=== PATIENT | male | born 1960 | race Caucasian/White ===

== ENCOUNTER 2017-01-20 01:37 | Inpatient (IN) ==
--- NOTE | 2017-01-20 02:21 | Emergency Department Note ---
Fall HPI - General Chief Complaint: Fall Stated Complaint: Fall Time Seen by Provider: 01/20/17 02:14 Source: patient Mode of arrival: EMS - History of Present Illness HPI Narrative: Patient brought by ambulance, Deejay fallen on the left hip. He did have a few beers to drink, scaring of the trash slipped and fell and landed on the left hip. He denies any nausea vomiting denies any chest pain he's had no other injuries. History of hepatitis C. He drinks about 40 ounces of beer daily. - Related Data Home Medications Medication Instructions Recorded Confirmed No Known Home Meds [No Known Home 01/20/17 01/20/17 Meds] Allergies Allergy/AdvReac Type Severity Reaction Status Date / Time Penicillins Allergy Unknown Anaphylaxis Unverified 04/19/15 15:00 Review of Systems All systems ED: reviewed and negative except as stated. Constitutional: Denies: fever Eyes: Denies: eye pain ENT ED: Denies: ear pain, throat pain Cardiovascular: Denies: chest pain, dyspnea on exertion Respiratory: Denies: cough Gastrointestinal: Denies: abdominal pain Genitourinary: Denies: dysuria Musculoskeletal: Denies: back pain Neurological: Denies: headache Fall PMH - Past Medical History Medical history: Reports: liver disease, other (hronic alcoholism) Surgical history ED: Reports: non-contributory Family history: Reports: no significant family history - Social History smoking status: Current every day smoker Alcohol use: Reports: Recent Drug use: Reports: none Physical Exam - General Limitations: no limitations General appearance: alert, in no apparent distress - Head Head exam: atraumatic, normocephalic - Eye Eye exam: Present: normal appearance, PERRL, EOMI - ENT ENT exam: normal exam, TM's normal bilaterally, other (poor oral hygiene) - Neck Neck exam: Present: normal inspection, full ROM, trachea midline. Absent: tenderness, meningismus - Chest Chest inspection: Present: normal inspection, symmetric chest wall rise - Respiratory Respiratory exam: Present: normal lung sounds bilaterally. Absent: respiratory distress - Cardiovascular Cardiovascular exam: Present: regular rate, normal rhythm, normal heart sounds - Abdominal Exam Abdominal exam: Present: soft, normal bowel sounds. Absent: distention, tenderness, guarding, rebound - exam: Present: normal inspection - Extremities Exam Extremities exam: Present: tenderness, other (Tender left hip, externally rotatedand shortened left leg. Distal sensation intact.) - Back Exam Back exam: Present: normal inspection, full ROM. Absent: CVA tenderness (R), CVA tenderness (L) - Neurological Exam Neurological exam: Present: alert, oriented X3, CN II-XII intact, motor sensory deficit - Psychiatric Psychiatric exam: Present: normal affect - Skin Skin exam: Present: warm, dry, intact. Absent: rash Course Vital Signs Temperature 97.7 F 01/20/17 01:38 Pulse Rate 87 01/20/17 01:38 Respiratory Rate 18 01/20/17 01:38 Pulse Oximetry (%) 97 01/20/17 01:38 Temperature 97.7 F 01/20/17 01:38 Pulse Rate 87 01/20/17 01:38 Respiratory Rate 18 01/20/17 01:38 Pulse Oximetry (%) 97 01/20/17 01:38 Fall - [facility] Narrative Medical decision making narrative: x-rays reviewed he does have a femoral n Fracture Disposition Pt seen by PARAEDUCATOR/PA only: No Clinical Impression: Hip fracture Disposition: Xfer As Inpt ([facility]) Condition: Good Referrals: Jason Gold MD [Primary Care Provider] -
[2017-01-20] MEDS ORDERED: HYDROmorphone 2 MG/ML SYRINGE IV PRN ×3 (02:28→15:42)
[2017-01-20] MEDS ORDERED: LORazepam 2 MG/ML VIAL IV PRN ×2 (02:28→15:41)
[2017-01-20] MEDS ORDERED: MVI, ADULT NO.4 WITH VIT K 10 ML in DEXTROSE 5% IN WATER 500 ML IV SCH (02:30)
[2017-01-20] MEDS ORDERED: MVI, ADULT NO.4 WITH VIT K 10 ML VIAL IV ONE (02:46)
[2017-01-20 03:25] LABS: Basophils # (Auto) 0 K/mcL (0.0-0.3); Basophils % (Auto) 0.3 % (0.0-2.0); Eosinophils # (Auto) 0.1 K/mcL (0.0-0.7); Eosinophils % (Auto) 0.9 % (0.0-7.0); Granulocytes % (Auto) 67.3 % (38.0-78.0); Lymphocytes % (Auto) 22.7 % (15.5-49.0); Mean Cell Volume 99.1 fL (80.0-100.0); Mean Corpuscular HGB Conc 33.8 g/dL (31.0-36.0); Mean Corpuscular Hemoglobin 33.5 pg (26.0-34.0); Monocytes # (Auto) 0.8 K/mcL (0.1-0.9); Monocytes % (Auto) 8.8 % (1.0-12.0); Platelet Count 363 K/mcL (140-440); RBC 3.87 M/mcL (4.50-5.90); Red Cell Distribution Width 13.3 % (11.5-14.5)
[2017-01-20 03:46] LABS: ALT/SGPT 20 U/l (0-40); Albumin/Globulin Ratio 1.3 (1.0-2.3); Alkaline Phosphatase 53 U/L (39-117); Blood Urea Nitrogen 11 mg/dl (6-20); Magnesium 1.4 mg/dL (1.6-2.5)
--- NOTE | 2017-01-20 06:45 | XRay Report ---
CLINICAL INFORMATION: Fall. Hip pain. TECHNIQUE: AP pelvis and bilateral hips. Lateral left hip COMPARISON: None. FINDINGS: Left subcapital hip fracture with mild impaction and valgus angulation. Pelvis is negative. No fracture. No lytic lesion. Sacrum is negative. IMPRESSION: Left subcapital hip fracture Interpreted and Authenticated by: Chau Yanes 01/20/17
--- NOTE | 2017-01-20 07:06 | XRay Report ---
CLINICAL INFORMATION: Preoperative evaluation. Hip fracture. TECHNIQUE: AP portable semierect chest x-ray COMPARISON: None. FINDINGS: Focal density at the left base. This is probably calcified and may be associated with a rib. Routine upright PA and lateral chest x-rays recommended for further evaluation. Lungs are otherwise negative. Heart size and vascularity are normal. No pulmonary congestion. No pulmonary edema. Nury and mediastinum are negative IMPRESSION: Focal density at the left base. PA and lateral chest x-ray recommended. Interpreted and Authenticated by: Chau Yanes 01/20/17
[2017-01-20] MEDS: HYDROmorphone 2 MG/ML SYRINGE IV PRN ×2 (07:30→10:44)
[2017-01-20] MEDS: LACTATED RINGERS 1,000 ML IV SCH ×3 (08:11→15:52)
[2017-01-20] MEDS ORDERED: ceFAZolin 1 GM VIAL IV SCH (11:30)
[2017-01-20] MEDS ORDERED: ceFAZolin 1 GM VIAL ONE (11:39)
[2017-01-20] MEDS ORDERED: ONDANSETRON 4 MG/2 ML VIAL IV ONE (11:40)
[2017-01-20] MEDS ORDERED: TRANEXAMIC ACID 1,000 MG/10 ML VIAL IV ONE ×2 (11:40→12:50)
[2017-01-20] MEDS ORDERED: KETAMINE 100 MG/ML ML IV ONE (11:40)
[2017-01-20] MEDS ORDERED: PROPOFOL 200 MG/20 ML VIAL IV ONE (11:40)
[2017-01-20] MEDS ORDERED: SUCCINYLCHOLINE 20 MG/ML ML IV ONE (11:40)
[2017-01-20] MEDS ORDERED: HYDROmorphone 2 MG/ML SYRINGE IV ONE (11:40)
[2017-01-20] MEDS ORDERED: GLYCOPYRROLATE 0.2 MG/ML VIAL IV ONE (11:40)
[2017-01-20] MEDS ORDERED: LIDOCAINE HCL/PF 100 MG/5 ML SYRINGE IV ONE (11:40)
[2017-01-20] MEDS ORDERED: fentaNYL 250 MCG/5 ML VIAL IV ONE (11:40)
[2017-01-20] MEDS ORDERED: MIDAZOLAM 2 MG/2 ML VIAL IV ONE (11:40)
[2017-01-20] MEDS ORDERED: DEXAMETHASONE 10 MG/ML VIAL IV ONE (11:40)
[2017-01-20] MEDS ORDERED: METHOCARBAMOL 1,000 MG/10 ML VIAL IV PRN (12:19)
[2017-01-20] MEDS ORDERED: BENZOCAINE/MENTHOL 1 LOZENGE PO PRN ×2 (12:19→12:50)
[2017-01-20] MEDS ORDERED: ONDANSETRON 4 MG/2 ML VIAL IV PRN ×2 (12:19→12:50)
[2017-01-20] MEDS ORDERED: LACTATED RINGERS 250 ML IV PRN (12:19)
[2017-01-20] MEDS ORDERED: MEPERIDINE 50 MG/ML SYRINGE IM PRN (12:19)
[2017-01-20] MEDS ORDERED: fentaNYL 100 MCG/2 ML VIAL IV PRN (12:19)
[2017-01-20] MEDS ORDERED: IPRATROPIUM/ALBUTEROL 3 ML AMPUL.NEB NEB PRN (12:19)
[2017-01-20] MEDS ORDERED: ePHEDrine 50 MG/ML AMPUL IV PRN (12:19)
[2017-01-20] MEDS ORDERED: MEPERIDINE 25 MG/ML SYRINGE IV PRN (12:19)
[2017-01-20] MEDS ORDERED: NALOXONE HCL 0.4 MG/ML VIAL IV PRN (12:19)
[2017-01-20] MEDS ORDERED: diphenhydrAMINE 50 MG/ML VIAL IV PRN (12:19)
[2017-01-20] MEDS ORDERED: FLUMAZENIL 0.1 MG/ML ML IV PRN (12:19)
[2017-01-20] MEDS ORDERED: LACTATED RINGERS 1,000 ML IV SCH (12:30)
[2017-01-20] MEDS ORDERED: GENTAMICIN SULFATE 800 MG/20 ML VIAL IR ONE (12:42)
[2017-01-20] MEDS ORDERED: MAGNESIUM HYDROXIDE 30 ML ORAL.SUSP PO PRN (12:50)
[2017-01-20] MEDS ORDERED: BISACODYL 10 MG SUPP.RECT PR PRN (12:50)
[2017-01-20] MEDS ORDERED: POLYETHYLENE GLYCOL 3350 17 GM PACKET PO PRN (12:50)
[2017-01-20] MEDS ORDERED: FLEETS ADULT ENEMA PR PRN (12:50)
[2017-01-20] MEDS ORDERED: TEMAZEPAM 15 MG CAPSULE PO PRN (12:50)
--- NOTE | 2017-01-20 12:50 | Brief Operative Note ---
Date of procedure: 01/20/17 Pre-op diagnosis: left femoral neck fracture sub capital Post-op diagnosis: same Procedure: left hip cemented sue arthroplasty Grafts/Implants: Yes Anesthesia: SIRISHAA Surgeon: Eric Gomes Supervisor Delivery Department: Shiva Carlson Estimated blood loss (cc): 20 Specimens Removed/Pathology: none sent Condition: stable Disposition: PACU
--- NOTE | 2017-01-20 13:48 | XRay Report ---
CLINICAL INFORMATION: Postsurgical follow-up TECHNIQUE: AP pelvis and left hip. Crosstable lateral left hip COMPARISON: Preoperative evaluation dated 01/20/2017 FINDINGS: Status post left hip arthroplasty. Alignment is anatomic. There is postsurgical soft tissue gas. IMPRESSION: Left hip arthroplasty. Interpreted and Authenticated by: Chau Yanes 01/20/17
[2017-01-20] MEDS: 0.9 % SODIUM CHLORIDE 10 ML SYRINGE IV SCH ×2 (15:51→20:06)
[2017-01-20] MEDS ORDERED: NICOTINE 21 MG PATCH ONE (16:15)
[2017-01-20] MEDS: NICOTINE 21 MG PATCH TOPICAL SCH (16:15)
[2017-01-20] MEDS: HYDROcodone/APAP 10/325MG TABLET PO PRN ×3 (18:32→23:30)
[2017-01-20] MEDS: DOCUSATE SODIUM 100 MG CAPSULE PO SCH (19:35)
[2017-01-20] MEDS: ASPIRIN 325 MG ENTERIC COATED TABLET PO SCH (19:35)
[2017-01-20] MEDS: SENNOSIDES 1 TABLET PO SCH (19:35)
[2017-01-20] MEDS: ceFAZolin 1 GM VIAL IV SCH (19:35)
[2017-01-21] MEDS: ceFAZolin 1 GM VIAL IV SCH (04:03)
[2017-01-21] MEDS: HYDROcodone/APAP 10/325MG TABLET PO PRN ×5 (04:03→23:02)
[2017-01-21] MEDS: DOCUSATE SODIUM 100 MG CAPSULE PO SCH ×2 (08:51→21:42)
[2017-01-21] MEDS: ASPIRIN 325 MG ENTERIC COATED TABLET PO SCH ×2 (08:51→21:42)
[2017-01-21] MEDS: MAGNESIUM OXIDE 400 MG TABLET PO SCH ×2 (08:52→21:42)
[2017-01-21] MEDS: VITAMIN D3 1,000 UNIT TABLET PO SCH (08:52)
[2017-01-21] MEDS: NICOTINE 21 MG PATCH TOPICAL SCH (08:52)
[2017-01-21] MEDS: CALCIUM (OYSTER SHELL) 500 MG TABLET PO SCH ×3 (08:52→21:42)
[2017-01-21] MEDS: 0.9 % SODIUM CHLORIDE 10 ML SYRINGE IV SCH ×3 (14:51→21:41)
[2017-01-21] MEDS: LACTATED RINGERS 1,000 ML IV SCH ×2 (15:50)
--- NOTE | 2017-01-21 17:01 | Orthopedic Progress Note ---
Subjective Patient information: Note initiated : 01/21/17 at 4:59 pm Service Date, if different from initiated Date: [] Patient: Declan Davis 56 y/o M admitted on 01/20/17 for Fall/Left Hip Fracture. Chief Complaint: [less pain and no cp and no sob with xray showing infiltrate hip is doing well] Objective Vital signs: Vital Signs Temp Pulse Resp BP BP Pulse Ox 01/21/17 15:31 97.6 F 16 110/53 97 01/21/17 10:52 97.3 F 20 105/51 97 01/21/17 08:31 94 01/21/17 07:30 98.1 F 20 121/77 94 01/21/17 04:00 98.9 F 86 16 129/75 95 01/21/17 00:00 97.8 F 88 16 130/82 96 01/20/17 23:40 16 95 01/20/17 19:52 96 01/20/17 19:51 98.2 F 91 H 16 137/90 98 01/20/17 17:05 105 H Intake and Output 01/21/17 01/21/17 01/21/17 05:59 13:59 21:59 Intake Total 2110 / 2110 500 / 500 600 / 600 Output Total 1500 / 1500 Balance 610 / 610 500 / 500 600 / 600 Intake: IV 1000 / 1000 Lactated Ringers 1,000 ml 1000 / 1000 @ 100 mls/hr IV .Q10H [facility] Rx#:[id number] Oral 1110 / 1110 500 / 500 600 / 600 Output: Urine Catheter Amount 1500 / 1500 Other: Meal Nourishment/Supplement Percent of Meal Consumed 100% Feeding Ability Independent Weight 132 lb 8 oz Patient Weight 01/22/17 05:59 Weight 132 lb 8 oz Intake & Output: Intake & Output 01/21/17 01/21/17 01/21/17 05:59 13:59 21:59 Intake Total 2110 / 2110 500 / 500 600 / 600 Output Total 1500 / 1500 Balance 610 / 610 500 / 500 600 / 600 Weight 132 lb 8 oz Intake: IV 1000 / 1000 Lactated Ringers 1,000 ml 1000 / 1000 @ 100 mls/hr IV .Q10H [facility] Rx#:[id number] Oral 1110 / 1110 500 / 500 600 / 600 Output: Urine Catheter Amount 1500 / 1500 Other: Meal Nourishment/Supplement Percent of Meal Consumed 100% Feeding Ability Independent Incision: Yes healing Incision clean and dry: Yes Dressing: Yes clean Weight bearing status: full Neurological exam IM: Yes oriented X3, Yes neurovascular intact Extremities exam IM: Yes Foot pink and warm (ambulating well will plan dc tomorrow), Yes neurovascular intact - Labs CBC & BMP: 01/21/17 05:22 01/20/17 02:48 Labs: Orthopedic Labs 01/21/17 05:22 PT 13.6 INR 1.0 01/21/17 05:22 Hgb 11.9 L Hct 35.3 L
[2017-01-21] MEDS: SENNOSIDES 1 TABLET PO SCH (21:41)
[2017-01-21] MEDS: TAMSULOSIN 0.4 MG CAPSULE PO SCH (21:41)
[2017-01-22] MEDS: 0.9 % SODIUM CHLORIDE 10 ML SYRINGE IV SCH ×3 (05:22→20:52)
[2017-01-22] MEDS: HYDROcodone/APAP 10/325MG TABLET PO PRN ×4 (05:22→19:38)
--- NOTE | 2017-01-22 07:05 | Orthopedic Progress Note ---
Subjective Patient information: Note initiated : 01/22/17 at 7:03 am Service Date, if different from initiated Date: [] Patient: Declan Davis 56 y/o M admitted on 01/20/17 for Fall/Left Hip Fracture. Chief Complaint: [Pt is stable this morning on post operative day 2 without any significant concerns or complaints. Patients vital signs have remained stable. Patients dressing is dry and exhibits a grossly intact neurovascular and neuromotor exam. Patients 10 point ROS is otherwise negative. ] Objective Vital signs: Vital Signs Temp Pulse Resp BP Pulse Ox 01/22/17 04:00 97.9 F 81 12 103/69 95 01/21/17 23:41 98.0 F 83 12 111/69 94 01/21/17 20:00 98.4 F 92 H 12 99/65 95 01/21/17 15:31 97.6 F 16 110/53 97 01/21/17 10:52 97.3 F 20 105/51 97 01/21/17 08:31 94 01/21/17 07:30 98.1 F 20 121/77 94 Intake and Output 01/21/17 01/22/17 01/22/17 21:59 05:59 13:59 Intake Total 600 / 600 150 / 150 Output Total 600 / 600 Balance 600 / 600 -450 / -450 Intake: Oral 600 / 600 150 / 150 Output: Urine Catheter Amount 600 / 600 Other: Weight 131 lb Intake & Output: Intake & Output 01/21/17 01/22/17 01/22/17 21:59 05:59 13:59 Intake Total 600 / 600 150 / 150 Output Total 600 / 600 Balance 600 / 600 -450 / -450 Weight 131 lb Intake: Oral 600 / 600 150 / 150 Output: Urine Catheter Amount 600 / 600 Incision: Yes healing Incision clean and dry: Yes Dressing: Yes clean Weight bearing status: full Neurological exam IM: Yes motor sensory intact, Yes neurovascular intact Extremities exam IM: Yes Foot pink and warm, Yes neurovascular intact - Labs CBC & BMP: 01/22/17 05:03 01/20/17 02:48 Labs: Orthopedic Labs 01/22/17 01/21/17 05:03 05:22 PT Pending 13.6 INR Pending 1.0 01/22/17 01/21/17 05:03 05:22 Hgb 11.2 L 11.9 L Hct 32.4 L 35.3 L Assessment and Plan (1) Hx of fracture of hip Patient has been educated regarding wound care and dressings, follow up recommendations, and medication use. We will f/u with the patient within 2-3 weeks for wound check. Status: Acute
--- NOTE | 2017-01-22 07:08 | Discharge Summary ---
Ortho Discharge - [facility]O - Patient Instructions Diet: Regular Diet Activity: activity as tolerated, weight bearing as tolerated Total Hip Protocol: Follow activity instructions as provided by Physical Therapy. Dressing Care: May shower in 3 days, Aquacel Ag - leave on for 5 days Patient Education: Open Reduction and Internal Fixation of a Hip Fracture (DC) Additional Instructions: Leave catheter in for 5 - 7 days and then remove. - Problem Maintenance (1) Hx of fracture of hip Status: Acute - Follow Up Plan Follow Up Appointments: Jason Gold MD [Primary Care Provider] - Disposition: Xfer SNF Prognosis: Good Rehab Potential: Good I certify that the patient requires SNF services: Yes Overall status at discharge: patient is progressing back to baseline - Orders For Discharge Prescriptions: Aspirin [Ecotrin] 325 mg PO BID #60 Docusate Sodium [Colace] 100 mg PO BID #60 capsule HYDROcodone/APAP 10/325MG [[place] 10/325Mg] 1 - 2 tab PO Q4HP PRN #75 tablet PRN Reason: Pain
--- NOTE | 2017-01-22 07:47 | XRay Report ---
HISTORY: Reason for Exam:focal density at the left base FINDINGS: PA and lateral views were obtained. The nodular density seen laterally at the left lung base on 01/20/17 appears to be due to focal ossification between the anterior lateral margins of the left fourth and fifth ribs. Similar ossification has formed between the anterolateral aspects of the left sixth and seventh ribs. There is an old healed fracture posterior laterally in the left seventh rib. There is no evidence of an underlying lung mass. The right lung is clear and the right-sided ribs are normal. The heart size, mediastinum and delon are normal. There are old healed fractures in the distal clavicles bilaterally and there is also an old compression fracture involving the superior endplate of T12. IMPRESSION: Ossifications between the anterior portions of the left fourth and fifth ribs and between the left sixth and seventh ribs. The ossification mimicked a lung nodule in the prior chest x-ray Interpreted and Authenticated by: Brice Coy 01/22/17
[2017-01-22] MEDS: VITAMIN D3 1,000 UNIT TABLET PO SCH (10:06)
[2017-01-22] MEDS: CALCIUM (OYSTER SHELL) 500 MG TABLET PO SCH ×3 (10:10→20:51)
[2017-01-22] MEDS: MAGNESIUM OXIDE 400 MG TABLET PO SCH ×2 (10:10→20:51)
[2017-01-22] MEDS: DOCUSATE SODIUM 100 MG CAPSULE PO SCH ×2 (10:11→20:50)
[2017-01-22] MEDS: ASPIRIN 325 MG ENTERIC COATED TABLET PO SCH ×2 (10:11→20:51)
[2017-01-22] MEDS: NICOTINE 21 MG PATCH TOPICAL SCH (10:15)
[2017-01-22] MEDS: SENNOSIDES 1 TABLET PO SCH (20:49)
[2017-01-22] MEDS: TAMSULOSIN 0.4 MG CAPSULE PO SCH (20:50)
[2017-01-23] MEDS: HYDROcodone/APAP 10/325MG TABLET PO PRN ×3 (03:49→12:05)
--- NOTE | 2017-01-23 07:10 | Orthopedic Progress Note ---
Subjective Patient information: Note initiated : 01/23/17 at 7:09 am Service Date, if different from initiated Date: [] Patient: Declan Davis 56 y/o M admitted on 01/20/17 for Fall/Left Hip Fracture. Chief Complaint: [HEALING WELL WITH SLOW PROGRESS] Objective Vital signs: Vital Signs Temp Pulse Resp BP Pulse Ox 01/23/17 03:42 97.8 F 85 14 120/71 96 01/22/17 23:49 97.5 F 75 14 102/73 95 01/22/17 20:00 97.6 F 90 14 104/64 97 01/22/17 15:45 97.9 F 16 98/60 95 01/22/17 11:37 97.5 F 74 16 101/67 93 01/22/17 08:00 97.2 F 83 16 111/72 93 01/22/17 07:21 93 01/22/17 07:15 16 Intake and Output 01/22/17 01/23/17 01/23/17 21:59 05:59 13:59 Intake Total 350 / 350 200 / 200 Output Total 275 / 275 575 / 575 Balance 75 / 75 -375 / -375 Intake: Oral 350 / 350 200 / 200 Output: Urine Catheter Amount 275 / 275 575 / 575 Other: Weight 131 lb Intake & Output: Intake & Output 01/22/17 01/23/17 01/23/17 21:59 05:59 13:59 Intake Total 350 / 350 200 / 200 Output Total 275 / 275 575 / 575 Balance 75 / 75 -375 / -375 Weight 131 lb Intake: Oral 350 / 350 200 / 200 Output: Urine Catheter Amount 275 / 275 575 / 575 Incision: Yes healing Incision clean and dry: Yes Dressing: Yes clean Weight bearing status: full Neurological exam IM: Yes abnormal gait, Yes oriented X3, Yes neurovascular intact Extremities exam IM: Yes Foot pink and warm, Yes neurovascular intact (DC TO SNF TODAY) - Labs CBC & BMP: 01/23/17 05:19 01/20/17 02:48 Labs: Orthopedic Labs 01/23/17 01/22/17 01/21/17 05:19 05:03 05:22 PT Pending 12.8 13.6 INR Pending 0.9 1.0 01/23/17 01/22/17 01/21/17 05:19 05:03 05:22 Hgb 11.0 L 11.2 L 11.9 L Hct 32.6 L 32.4 L 35.3 L
[2017-01-23] MEDS: CALCIUM (OYSTER SHELL) 500 MG TABLET PO SCH (07:38)
[2017-01-23] MEDS: ASPIRIN 325 MG ENTERIC COATED TABLET PO SCH (07:38)
[2017-01-23] MEDS: VITAMIN D3 1,000 UNIT TABLET PO SCH (07:38)
[2017-01-23] MEDS: DOCUSATE SODIUM 100 MG CAPSULE PO SCH (07:38)
[2017-01-23] MEDS: MAGNESIUM OXIDE 400 MG TABLET PO SCH (07:39)
[2017-01-23] MEDS: 0.9 % SODIUM CHLORIDE 10 ML SYRINGE IV SCH (07:39)
[2017-01-23] MEDS: NICOTINE 21 MG PATCH TOPICAL SCH (10:18)
== END 2017-01-23 12:55 | DRG 470 ==
LOC: ED 01:37 → MEDSUR 03:00
PROVIDERS: ADMIT Orthopaedic Surgery; ATTEND Orthopaedic Surgery
PROC: HEMIHIP (2017-01-20 11:38)

== ENCOUNTER 2021-12-13 15:19 | Inpatient (IN) ==
[2021-12-13] MEDS ORDERED: IOPAMIDOL 100 ML BOTTLE IV ONE (15:20)
[2021-12-13] MEDS ORDERED: ASPIRIN 300 MG RECTAL SUPPOSITORY PR ONE (15:35)
--- NOTE | 2021-12-13 15:52 | Cat Scan Report ---
CLINICAL INFORMATION: Decreased mental status COMPARISON: None. TECHNIQUE: 2.5 mm helical slices were obtained in the skull base to vertex. Following reconstruction, axial reformatted images were reviewed at bone and parenchymal windows. The exam was performed using radiation dose optimization techniques including, but not limited to, automated exposure control, adjustment of the mA and/or kV according to patient size and use of iterative reconstruction technique. FINDINGS: The ventricles, sulci, fissures, and cisterns are symmetrically enlarged compatible with mild age-related atrophy. No extra-axial fluid collections are identified. Mild patchy chronic ischemic changes, in the deep cerebral white matter, are expected for age. 9 mm remote lacunar infarcts in the left lentiform nucleus appreciated with a few smaller remote lacunar infarcts scattered in the basal ganglia bilaterally. There is no hemorrhage, mass effect, or edema. Bone windows show no osseous abnormality. IMPRESSION: Mild atrophy and chronic ischemic changes in the deep cerebral white matter-expected for age. Remote lacunar infarcts in the basal ganglia. No hemorrhage or other acute finding Large amount of cerumen seen in both external auditory meatus. Consider removal Interpreted and Authenticated by: Chau Dean 12/13/21
--- NOTE | 2021-12-13 15:52 | Emergency Department Note ---
HPI General Chief complaint: Stroke Symptoms Stated complaint: stroke symptoms Time Seen by Provider: 12/13/21 15:33 Source: patient and EMS Mode of arrival: EMS Limitations: no limitations History of Present Illness HPI Narrative: 61-year-old male with past medical history of hepatitis C presenting with left-sided weakness. Symptoms started approximately 3 days ago with difficulty moving his left arm and left leg. He has been laying in bed for the past 3 days and was finally convinced to come to the emergency department. Patient denies any fall or injury. Denies any prior history of stroke. He endorses numbness on the left side of his face and difficulty controlling and moving his left arm and left leg. Denies fever, cough, abdominal pain, headache, or vision changes. Not on anticoagulation. Related Data Previous Rx's Medication Instructions Recorded aspirin 325 mg tablet,delayed 325 mg PO BID #60 01/22/17 release docusate sodium 100 mg capsule 100 mg PO BID #60 cap 01/22/17 hydrocodone 10 mg-acetaminophen 1 - 2 tab PO Q4HP PRN #75 tab 01/22/17 325 mg tablet cephalexin 500 mg capsule 500 mg PO QID #40 cap 08/05/17 Allergies Allergy/AdvReac Type Severity Reaction Status Date / Time Penicillins Allergy Intermediate Rash Verified 12/13/21 15:24 Review of Systems ROS ROS Narrative: Narrative: Constitutional: Denies fever Eyes: Denies vision change ENT ED: Denies throat pain Cardiovascular: Denies chest pain Respiratory: Denies shortness of breath or cough Gastrointestinal: Denies abdominal pain, nausea, vomiting or diarrhea Genitourinary: Denies dysuria Musculoskeletal: Denies back pain Integumentary: Denies rash Neurological: Reports as per HPI; Denies headache Psychiatric: Denies anxiety Hematological/Lymphatic: Denies easy bruising [facility] Narrative Patient History Narrative: Narrative: Medical/Surgical/Family History All Active Problems (Updated 12/13/21 @ 16:58 by Ronak Magallon MD) Hip fracture (Acute) Hx of fracture of hip (Acute) Cellulitis, finger (Acute) Acute cerebrovascular accident (CVA) (Acute) H/O colonoscopy (Chronic) Status post surgery (Chronic) Accident (Chronic) Hypoglycemia (Chronic) Hepatitis C (Chronic) Liver disease (Chronic) Daytime sleepiness (Chronic) Insomnia (Chronic) Acid reflux (Chronic) Heartburn (Chronic) Indigestion (Chronic) Heart murmur (Chronic) Anxiety (Chronic) Depression (Chronic) Muscle pain (Chronic) Fatigue (Chronic) Carpal tunnel syndrome (Chronic) Arthritis (Chronic) Medical History (Updated 12/13/21 @ 16:58 by Ronak Magallon MD) Accident Pt. cut 3 fingers off right hand Acid reflux Anxiety Arthritis Carpal tunnel syndrome Daytime sleepiness Depression Fatigue Heart murmur Heartburn Hepatitis C Hypoglycemia Indigestion Insomnia Liver disease Muscle pain Surgical History (Updated 08/18/20 @ 10:51 by [employer]) H/O colonoscopy Status post surgery artery repair in wrist Family History (Updated 04/19/15 @ 15:17 by Estelita Guillermo) Unknown No pertinent family history Social History Smoking Status: Current every day smoker Alcohol Intake Frequency: 0-2 drinks per day Exam Narrative Narrative: Narrative: General Limitations: no limitations General appearance: Present alert, in no apparent distress, thin and other (poor hygiene) Head Head: Present atraumatic and normocephalic Eye Eye: Present normal appearance, PERRL, EOMI and visual dutton intact; Absent scleral icterus, conjunctival injection or nystagmus ENT ENT: Present mucous membranes moist Neck Neck: Present normal inspection, full ROM and trachea midline Chest Chest: Present symmetric chest wall rise Respiratory Respiratory: Present normal lung sounds bilaterally; Absent respiratory distress, rales/crackles, wheezes, stridor or accessory muscle use Cardiovascular Cardiovascular: Present regular rate and normal rhythm; Absent systolic murmur or diastolic murmur Adbominal Abdominal: Present soft; Absent distention, tenderness, guarding, rebound or rigidity Extremities Extremities: Absent pretibial edema Back Back: Absent CVA tenderness (R), CVA tenderness (L) or spinous process tenderness Neurological Neurological: Present alert, oriented X3 and other (Mildly dysarthric, decreased sensation over the left cheek. Weakness of the left arm and left leg but able to move them off the bed. Ataxia on the left side. NIH stroke scale is 8) Expanded Neurological Patient oriented to: Present person, place and time Speech: Present dysarthria; Absent expressive aphasia CRANIAL NERVES: EOM function (II, III, IV, ): Normal, facial sensation (V): Ab normal Left, facial palsy (VII): Abnormal Left, gag reflex (IX): Normal, spinal accessory function (XI): Normal and tongue deviation (XII): Normal CEREBELLAR FUNCTION: finger to nose: Abnormal Left Motor strength - LUE: 3/5 Motor strength - RUE: 5/5 Motor strength - LLE: 3/5 Motor strength - RLE: 5/5 UPPER MOTOR NEURON EXAM: sue neglect: Normal SENSORY EXAM UPPER EXTREMITY: Abnormal Left: light touch SENSORY EXAM LOWER EXTREMITY: Abnormal Left: light touch Coma Scale Eye Opening: Spontaneous Coma Scale Motor Response: Obeys Commands Coma Scale Verbal Response: Oriented Coma Scale Total: 15 Psychiatric Psychiatric: Present normal affect and normal mood Skin Skin: Present warm (WNL) and dry Course Consultations Consultation #1: Dr. Ortez, hospitalist Time: 16:50 Vital Signs Vital signs: Vital Signs Temperature 97.8 F 12/13/21 15:20 Pulse Rate 106 H 12/13/21 15:20 Respiratory Rate 16 12/13/21 15:20 Blood Pressure 132/94 12/13/21 15:20 Pulse Oximetry (%) 98 12/13/21 15:20 Temperature 97.8 F 12/13/21 15:20 Pulse Rate 95 H 12/13/21 16:00 Respiratory Rate 14 12/13/21 16:52 Blood Pressure 117/79 12/13/21 16:46 Pulse Oximetry (%) 99 12/13/21 16:00 MDM MDM Narrative Medical decision making narrative: 61-year-old male presenting with left-sided weakness. Last normal was 3 days ago. He does have left-sided weakness and decreased sensation on the left side as well as mild dysarthria. NIH stroke scale is 8. Glucose is 74. EKG with no ischemic changes. He is outside of the window for tPA administration or other intervention. Will obtain labs, CT brain without, CTA head and neck, and plan for admission. 1655: Labs within normal limits, lactate is normal. CT without contrast and CTA head and neck show no acute findings. 324mg aspirin given. I discussed the patient with Dr. Ortez, hospitalist, who will admit. Lab Data Lab results reviewed: Yes I reviewed the patient's lab results. Result diagrams: 12/13/21 15:32 12/13/21 15:32 Labs: Lab Results 12/13/21 12/13/21 12/13/21 Range/Units 15:32 15:32 15:32 WBC 7.5 (4.5-11.0) K/mcL RBC 5.34 (4.63-6.08) M/mcL Hgb 15.7 (13.7-17.5) g/dL Hct 46.3 (40.1-51.0) % MCV 86.7 (80.0-100.0) fL MCH 29.4 (26.0-34.0) pg MCHC 33.9 (31.0-36.0) g/dL RDW 12.6 (11.5-14.5) % Plt Count 474 H (140-440) K/mcL MPV 8.9 (7.4-10.4) fL Neut % (Auto) 48.0 (38.0-78.0) % Lymph % (Auto) 36.1 (15.5-49.0) % [place] % (Auto) 13.3 H (1.0-12.0) % Eos % (Auto) 1.9 (0.0-7.0) % Baso % (Auto) 0.7 (0.0-2.0) % Lymph # (Auto) 2.71 (1.50-4.80) K/mcL [place] # (Auto) 1.00 H (0.10-0.90) K/mcL Eos # (Auto) 0.14 (0.00-0.70) K/mcL Baso # (Auto) 0.05 (0.00-0.30) K/mcL Absolute Neutrophils 3.60 (1.80-8.00) K/mcL POC PT (11.9-14.5) PT 13.3 (11.9-14.5) sec POC INR (0.8-1.2) INR 1.0 (0.9-1.1) APTT 28.1 (20.0-37.0) sec VBG Lactic Acid (0.5-2.0) mmol/L Sodium 132 L (133-145) mmol/L Potassium 4.0 (3.3-5.1) mmol/L Chloride 97 (96-108) mmol/L Carbon Dioxide 21 L (22-30) mmol/L Anion Gap 14.0 (8.0-16.0) BUN 16 (8-23) mg/dL Creatinine 0.7 (0.7-1.2) mg/dL GFR Calculation 100 Glucose 71 (70-105) mg/dL Calcium 9.2 (8.6-10.4) mg/dL Total Bilirubin 0.5 (0.1-1.0) mg/dL AST 19 (<40) U/L ALT 12 (<40) U/L Alkaline Phosphatase 68 (39-117) U/L Troponin T (<0.03) ng/mL Total Protein 7.6 (5.9-8.4) gm/dL Albumin 3.7 (3.2-5.2) gm/dL Globulin 3.9 H (2.2-3.7) gm/dL Albumin/Globulin Ratio 0.9 L (1.0-2.3) 12/13/21 12/13/21 12/13/21 Range/Units 15:32 15:49 15:51 WBC (4.5-11.0) K/mcL RBC (4.63-6.08) M/mcL Hgb (13.7-17.5) g/dL Hct (40.1-51.0) % MCV (80.0-100.0) fL MCH (26.0-34.0) pg MCHC (31.0-36.0) g/dL RDW (11.5-14.5) % Plt Count (140-440) K/mcL MPV (7.4-10.4) fL Neut % (Auto) (38.0-78.0) % Lymph % (Auto) (15.5-49.0) % [place] % (Auto) (1.0-12.0) % Eos % (Auto) (0.0-7.0) % Baso % (Auto) (0.0-2.0) % Lymph # (Auto) (1.50-4.80) K/mcL [place] # (Auto) (0.10-0.90) K/mcL Eos # (Auto) (0.00-0.70) K/mcL Baso # (Auto) (0.00-0.30) K/mcL Absolute Neutrophils (1.80-8.00) K/mcL POC PT 15.9 H (11.9-14.5) PT (11.9-14.5) sec POC INR 1.3 H (0.8-1.2) INR (0.9-1.1) APTT (20.0-37.0) sec VBG Lactic Acid 1.1 (0.5-2.0) mmol/L Sodium (133-145) mmol/L Potassium (3.3-5.1) mmol/L Chloride (96-108) mmol/L Carbon Dioxide (22-30) mmol/L Anion Gap (8.0-16.0) BUN (8-23) mg/dL Creatinine (0.7-1.2) mg/dL GFR Calculation Glucose (70-105) mg/dL Calcium (8.6-10.4) mg/dL Total Bilirubin (0.1-1.0) mg/dL AST (<40) U/L ALT (<40) U/L Alkaline Phosphatase (39-117) U/L Troponin T < 0.01 (<0.03) ng/mL Total Protein (5.9-8.4) gm/dL Albumin (3.2-5.2) gm/dL Globulin (2.2-3.7) gm/dL Albumin/Globulin Ratio (1.0-2.3) EKG Data EKG #1: EKG attestation: Yes I reviewed and interpreted this EKG. and Yes There are no EKG findings of acute coronary syndrome EKG results narrative: Sinus rhythm at [address] elevation or depression. Interpretation: no acute changes Discharge Plan Patient/Caregiver Discharge Instructions Pt seen by SURVEY SUPERINTENDENT/PA only: No Clinical Impression: Acute cerebrovascular accident (CVA) Patient Disposition: Xfer As Inpt ([facility]) Condition: Fair Follow up with: No,PCP [Primary Care Provider] - Prescriptions: No Action hydrocodone-acetaminophen 1 TAB Tablet 1 - 2 tab PO Q4HP PRN (Reason: Pain) Qty: 75 0RF aspirin 325 MG Tab.Ec 325 mg PO BID Qty: 60 0RF docusate sodium 100 MG Capsule 100 mg PO BID Qty: 60 0RF cephalexin 500 MG capsule 500 mg PO QID Qty: 40 0RF
[2021-12-13 15:54] LABS: POC INR 1.3 (0.8-1.2); POC Pro Time 15.9 (11.9-14.5)
[2021-12-13 16:08] LABS: Basophils # (Auto) 0.05 K/mcL (0.00-0.30); Basophils % (Auto) 0.7 % (0.0-2.0); Eosinophils # (Auto) 0.14 K/mcL (0.00-0.70); Eosinophils % (Auto) 1.9 % (0.0-7.0); Hematocrit 46.3 % (40.1-51.0); Hemoglobin 15.7 g/dL (13.7-17.5); Lymphocytes # (Auto) 2.71 K/mcL (1.50-4.80); Lymphocytes % (Auto) 36.1 % (15.5-49.0); Mean Cell Volume 86.7 fL (80.0-100.0); Mean Corpuscular HGB Conc 33.9 g/dL (31.0-36.0); Mean Platelet Volume 8.9 fL (7.4-10.4); Monocytes % (Auto) 13.3 % (1.0-12.0); Platelet Count 474 K/mcL (140-440); RBC 5.34 M/mcL (4.63-6.08); Red Cell Distribution Width 12.6 % (11.5-14.5); WBC 7.5 K/mcL (4.5-11.0)
--- NOTE | 2021-12-13 16:09 | Cat Scan Report ---
CLINICAL INFORMATION: Stroke COMPARISON: None. TECHNIQUE: 80 cc of Isovue-370 were injected intravenously , and using SmartPrep to maximize cerebral arterial opacification, 0.625 mm helical slices were obtained from the skull base through the cerebral vertex. Following reconstruction , sagittal, coronal and axial reformatted images were processed and reviewed at multiple windows and levels. 3D volume rendered and MIP images were acquired at a independent workstation. The exam was performed using radiation dose optimization techniques including, but not limited to, automated exposure control, adjustment of the mA and/or kV according to patient size and use of iterative reconstruction technique. FINDINGS: There is moderate calcified atherosclerotic plaque in the cavernous segments of both intracranial internal carotid arteries. This may result in mild (less than 50%) stenoses. The remaining intracranial internal carotid, vertebral, basilar, anterior, middle and posterior cerebral arteries and their branches are well-opacified and normal in contour and caliber without significant stenosis, occlusion or other pathology. Superficial/deep cerebral veins and deep venous sinuses are widely patent IMPRESSION: Calcific plaque in both cavernous internal carotid artery segments. Exam otherwise normal Interpreted and Authenticated by: Chau Dean 12/13/21
[2021-12-13] MEDS ORDERED: ASPIRIN 81 MG TAB.CHEW CHEWED ONE (16:10)
--- NOTE | 2021-12-13 16:16 | Cat Scan Report ---
CLINICAL INFORMATION: Possible stroke COMPARISON: None. TECHNIQUE: 80 cc of Isovue-300 were injected intravenously followed by 40 cc of normal saline flush. Using SmartPrep, 0.625 helical slices were obtained from the thoracic aortic arch through the port [place] of [place]. Following reconstruction, 2.5 mm sagittal, coronal and axial reformatted images were processed. MIPS , 3-D volume rendering and CPR images were also constructed. The exam was performed using radiation dose optimization techniques including, but not limited to, automated exposure control, adjustment of the mA and/or kV according to patient size and use of iterative reconstruction technique. FINDINGS: The thoracic aortic arch is normal diameter with minimal intimal thickening and conventional aortic branching. The brachiocephalic, both subclavian, both common, internal and external carotid and both vertebral arteries are widely patent without significant abnormality. There is mild fibrofatty calcific plaque in both carotid bifurcations. No soft tissue abnormality. IMPRESSION: Fibrofatty calcific plaque in the carotid bifurcation but no stenoses. Interpreted and Authenticated by: Chau Dean 12/13/21
[2021-12-13 16:21] LABS: Partial Thromboplastin Time 28.1 sec (20.0-37.0); Prothrombin Time 13.3 sec (11.9-14.5)
[2021-12-13 16:39] LABS: ALT/SGPT 12 U/L (<40); AST/SGOT 19 U/L (<40); Albumin 3.7 gm/dL (3.2-5.2); Albumin/Globulin Ratio 0.9 (1.0-2.3); Alkaline Phosphatase 68 U/L (39-117); Bilirubin,Total 0.5 mg/dL (0.1-1.0); Blood Urea Nitrogen 16 mg/dL (8-23); Calcium 9.2 mg/dL (8.6-10.4); Carbon Dioxide 21 mmol/L (22-30); Chloride 97 mmol/L (96-108); Globulin 3.9 gm/dL (2.2-3.7); Glomerular Filtration Rate 100; Glucose 71 mg/dL (70-105)
--- NOTE | 2021-12-13 17:21 | Internal Med History&Physical ---
HPI History of Present Illness Patient information: Note initiated : 12/13/21 at 5:19 pm Service Date, if different from initiated Date: [] Patient: Declan Davis a 61 y/o M admitted on for stroke symptoms. Chief Complaint: [left sided weakness] Chief complaint: left sided weakness History of present illness: Mr. Davis is a 61 year old M negative past medical history, p/w 4 days history of left sided weakness and numbness. There was no prior similar episode. He is c/o acute on set left sided weakness and numbness for the past 4 days, including both upper and lower extremities. He denies any nausea or vomiting or slurred speech or trouble swallowing. He also denies any headache. He denies any chest pain or palpitation. He denies any shortness of breath. Vital signs at ED presentation significant for transient tachypnea with rate of breathing in the upper 20s bpm. Labs largely unremarkable. CT head w/o contrast no acute intracranial pathologies. CTA head and neck no hemodynamically significant stenosis. NIHSS of 8 at ED presentation. Admission request made for management of sub-acute stroke. Constitutional Constitutional: Absent chills, excessive sweating, fatigue, fever(s) or weakness EENT Eyes: Absent blurry vision, change in vision, loss of vision or other visual disturbances Ears: Absent decreased hearing or tinnitus Nose, mouth and throat: Absent abnormal hearing, dry mouth, headache(s), nasal congestion or sore throat Cardiovascular Cardiovascular: Absent chest pain, chest pain at rest, edema, irregular heart rhythm or palpatations Respiratory Respiratory: Absent cough, dyspnea or wheezing Gastrointestinal Gastrointestinal: Absent abdominal pain, constipation, diarrhea, nausea or vomiting Musculoskeletal Musculoskeletal: Absent back pain, deformity, limited range of motion, muscle cramps, muscle weakness or numbness Integumentary Integumentary: Absent lesions, rash or wounds Neurological Neurological: Present as per HPI, focal weakness and numbness; Absent headache(s) Psychiatric Psychiatric: Absent anxiety, depression or hallucinations PFSH PFSH All Active Problems (Updated 12/13/21 @ 16:58 by Ronak Magallon MD) Hip fracture (Acute) Hx of fracture of hip (Acute) Cellulitis, finger (Acute) Acute cerebrovascular accident (CVA) (Acute) H/O colonoscopy (Chronic) Status post surgery (Chronic) Accident (Chronic) Hypoglycemia (Chronic) Hepatitis C (Chronic) Liver disease (Chronic) Daytime sleepiness (Chronic) Insomnia (Chronic) Acid reflux (Chronic) Heartburn (Chronic) Indigestion (Chronic) Heart murmur (Chronic) Anxiety (Chronic) Depression (Chronic) Muscle pain (Chronic) Fatigue (Chronic) Carpal tunnel syndrome (Chronic) Arthritis (Chronic) Medical History (Updated 12/13/21 @ 16:58 by Ronak Magallon MD) Accident Pt. cut 3 fingers off right hand Acid reflux Anxiety Arthritis Carpal tunnel syndrome Daytime sleepiness Depression Fatigue Heart murmur Heartburn Hepatitis C Hypoglycemia Indigestion Insomnia Liver disease Muscle pain Surgical History (Updated 08/18/20 @ 10:51 by [employer]) H/O colonoscopy Status post surgery artery repair in wrist Family History (Updated 04/19/15 @ 15:17 by Estelita Guillermo) Unknown No pertinent family history Social History marital status: single alcohol intake frequency: 0-2 drinks per day MEDS/ALLERGIES Home Medications and Allergies Home Medications Medication Instructions Recorded Confirmed Type aspirin 325 mg tablet,delayed 325 mg PO BID #60 01/22/17 Rx release docusate sodium 100 mg capsule 100 mg PO BID #60 cap 01/22/17 Rx hydrocodone 10 mg-acetaminophen 1 - 2 tab PO Q4HP PRN #75 tab 01/22/17 Rx 325 mg tablet cephalexin 500 mg capsule 500 mg PO QID #40 cap 08/05/17 Rx Allergies Allergy/AdvReac Type Severity Reaction Status Date / Time Penicillins Allergy Intermediate Rash Verified 12/13/21 15:24 EXAM Constitutional Vitals: Temp Pulse Resp BP Pulse Ox 36.6 C 95 H 13 114/87 99 12/13/21 15:20 12/13/21 16:00 12/13/21 17:13 12/13/21 17:01 12/13/21 16:00 General appearance: cooperative, disheveled and no acute distress Head Head exam: Present atraumatic and normocephalic Eye Eye exam: Present EOMI and PERRL ENT ENT exam: Present mucous membranes moist, normal exam and normal external ear exam Neck Neck exam: Present normal inspection; Absent lymphadenopathy, tenderness or thyromegaly Respiratory Respiratory exam: Absent accessory muscle use, respiratory distress or wheezes Cardiovascular Cardiovascular exam: Present normal rate and rhythm; Absent JVD GI/Abdominal GI/Abdominal exam: Present normal bowel sounds and soft; Absent organomegaly or tenderness Rectal Rectal exam: Present deferred Extremities Exam Extremities exam: Present full ROM, normal capillary refill and normal inspection; Absent tenderness Neurological Exam Neurological exam: Present alert, CN II-XII intact, motor sensory deficit and oriented X3 Additional comments: numbness of left upper and lower extremities Motor strength 3/5 left upper extremity, and 1/5 left lower extremity. Psychiatric Psychiatric exam: Present normal affect and normal mood; Absent anxious or depressed Skin Skin exam: Present dry and intact DATA Data Completed and Pending Labs: Labs from last 24 hours 12/13/21 12/13/21 12/13/21 15:51 15:49 15:32 WBC RBC Hgb Hct MCV MCH MCHC RDW Plt Count MPV Neut % (Auto) Lymph % (Auto) [place] % (Auto) Eos % (Auto) Baso % (Auto) Lymph # (Auto) [place] # (Auto) Eos # (Auto) Baso # (Auto) Absolute Neutrophils POC PT 15.9 H PT POC INR 1.3 H INR APTT VBG Lactic Acid 1.1 Sodium Potassium Chloride Carbon Dioxide Anion Gap BUN Creatinine GFR Calculation Glucose Calcium Total Bilirubin AST ALT Alkaline Phosphatase Troponin T < 0.01 Total Protein Albumin Globulin Albumin/Globulin Ratio 12/13/21 12/13/21 12/13/21 15:32 15:32 15:32 WBC 7.5 RBC 5.34 Hgb 15.7 Hct 46.3 MCV 86.7 MCH 29.4 MCHC 33.9 RDW 12.6 Plt Count 474 H MPV 8.9 Neut % (Auto) 48.0 Lymph % (Auto) 36.1 [place] % (Auto) 13.3 H Eos % (Auto) 1.9 Baso % (Auto) 0.7 Lymph # (Auto) 2.71 [place] # (Auto) 1.00 H Eos # (Auto) 0.14 Baso # (Auto) 0.05 Absolute Neutrophils 3.60 POC PT PT 13.3 POC INR INR 1.0 APTT 28.1 VBG Lactic Acid Sodium 132 L Potassium 4.0 Chloride 97 Carbon Dioxide 21 L Anion Gap 14.0 BUN 16 Creatinine 0.7 GFR Calculation 100 Glucose 71 Calcium 9.2 Total Bilirubin 0.5 AST 19 ALT 12 Alkaline Phosphatase 68 Troponin T Total Protein 7.6 Albumin 3.7 Globulin 3.9 H Albumin/Globulin Ratio 0.9 L A/P Assessment and plan (1) Acute cerebrovascular accident (CVA): Status: Acute Narrative A/P Narrative: Assessment and Plans: 1. 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 manager consult not tPA therapy candidacy due to timing outside of the therapeutic window Also not candidacy for permissive hypertension due to symptoms onset more than 48 hours ago 2D echocardiogram MRI brain stroke protocol Lipid panel HgA1c DAPT with aspirin and Plavix GI ppx: not currently indicated DVT ppx: Lovenox Code status: Full Prognosis: stable Disposition: Observation med surg telemetry ; PT OT Time Spent With Patient Time: Total time spent is greater than 50% in coordination of care (as documented) at patient's floor/unit and/or counseling patient: Total time spent with greater than 50% in coordination of care (as documented) at patient's floor/unit and/or counseling patient:: 50 - 70 minutes QUALITY Stroke Symptom Onset Unknown: No
[2021-12-13] MEDS ORDERED: ONDANSETRON 4 MG/2 ML VIAL IV PRN (17:50)
[2021-12-13] MEDS ORDERED: ACETAMINOPHEN 325 MG TABLET PO PRN (17:50)
[2021-12-13] MEDS ORDERED: hydrALAZINE 20 MG/ML VIAL IV PRN (17:50)
[2021-12-13] MEDS ORDERED: CLOPIDOGREL 300 MG TABLET PO ONE (17:50)
[2021-12-13] MEDS ORDERED: IPRATROPIUM/ALBUTEROL 3 ML AMPUL.NEB NEB PRN (17:50)
[2021-12-13 19:01] LABS: Hemoglobin A1C 5.3 % Hgb (4.0-6.0)
[2021-12-13] MEDS: SENNOSIDES 1 TABLET PO SCH (19:26)
[2021-12-13] MEDS: DOCUSATE SODIUM 100 MG CAPSULE PO SCH (19:26)
[2021-12-13] MEDS: 0.9 % SODIUM CHLORIDE 10 ML SYRINGE IV SCH (20:01)
[2021-12-13 22:48] LABS: Appearance,Urine Clear (Clear); Bilirubin,Urine Negative (Negative); Color,Urine Yellow; Culture Indicated,Urine No; Glucose,Urine (UA) Negative (Negative); Ketones,Urine 40 mg/dL mg/dL (Negative); Leukocyte Esterase,Urine Negative /uL (Negative); Mucus,Urine FEW /hpf; Nitrate,Urine Negative (Negative); Protein,Urine Negative (Negative); Urine Blood Trace-intact ery/mcL (Negative); Urine RBC 2 /hpf (0-3); Urine Squamous Epithelial Cell < 1 /hpf (0-4); Urine WBC < 1 /hpf (0-4); Urobilinogen,Urine Normal
[2021-12-14] MEDS: oxyCODONE HCL 5 MG TABLET PO PRN ×3 (03:27→19:18)
[2021-12-14] MEDS: 0.9 % SODIUM CHLORIDE 10 ML SYRINGE IV SCH ×3 (05:56→22:13)
[2021-12-14 06:32] LABS: Basophils # (Auto) 0.06 K/mcL (0.00-0.30); Basophils % (Auto) 0.9 % (0.0-2.0); Eosinophils # (Auto) 0.11 K/mcL (0.00-0.70); Eosinophils % (Auto) 1.6 % (0.0-7.0); Hematocrit 42.9 % (40.1-51.0); Hemoglobin 14.5 g/dL (13.7-17.5); Lymphocytes # (Auto) 2.02 K/mcL (1.50-4.80); Lymphocytes % (Auto) 29.4 % (15.5-49.0); Mean Cell Volume 89.4 fL (80.0-100.0); Mean Corpuscular HGB Conc 33.8 g/dL (31.0-36.0); Mean Platelet Volume 8.9 fL (7.4-10.4); Monocytes # (Auto) 0.72 K/mcL (0.10-0.90); Monocytes % (Auto) 10.5 % (1.0-12.0); Neutrophils % (Auto) 57.6 % (38.0-78.0); Platelet Count 445 K/mcL (140-440); Red Cell Distribution Width 12.6 % (11.5-14.5); WBC 6.9 K/mcL (4.5-11.0)
[2021-12-14 06:42] LABS: Prothrombin Time 13.3 sec (11.9-14.5)
[2021-12-14 06:59] LABS: HDL Cholesterol 35 mg/dL (>40); LDL Cholesterol,Calculated 64 mg/dL (<100); Non-HDL Cholesterol 75 mg/dL (<130); Triglycerides 56 mg/dL (<150)
[2021-12-14 07:49] LABS: Blood Urea Nitrogen 18 mg/dL (8-23); Calcium 8.9 mg/dL (8.6-10.4); Carbon Dioxide 21 mmol/L (22-30); Chloride 102 mmol/L (96-108); Glomerular Filtration Rate 100; Glucose 96 mg/dL (70-105)
[2021-12-14] MEDS: ENOXAPARIN 40 MG/0.4 ML SYRINGE SQ SCH (09:18)
[2021-12-14] MEDS: CLOPIDOGREL 75 MG TABLET PO SCH (09:19)
[2021-12-14] MEDS: ATORVASTATIN 40 MG TABLET PO SCH (09:19)
[2021-12-14] MEDS: DOCUSATE SODIUM 100 MG CAPSULE PO SCH ×2 (09:19→20:54)
[2021-12-14] MEDS: ASPIRIN 81 MG TAB.CHEW PO SCH (09:19)
--- NOTE | 2021-12-14 10:19 | Internal Med Progress Note ---
SUBJECTIVE Subjective Patient information: Note initiated : 12/14/21 at 10:17 am Service Date, if different from initiated Date: [] Patient: Declan Davis 61 y/o M admitted on 12/13/21 for stroke symptoms. Chief Complaint: [] Interval history: History of present illness: Mr. Davis is a 61 year old M negative past medical history, p/w 4 days history of left sided weakness and numbness. There was no prior similar episode. He is c/o acute on set left sided weakness and numbness for the past 4 days, including both upper and lower extremities. He denies any nausea or vomiting or slurred speech or trouble swallowing. He also denies any headache. He denies any chest pain or palpitation. He denies any shortness of breath. Vital signs at ED presentation significant for transient tachypnea with rate of breathing in the upper 20s bpm. Labs largely unremarkable. CT head w/o contrast no acute intracranial pathologies. CTA head and neck no hemodynamically significant stenosis. NIHSS of 8 at ED presentation. Admission request made for management of sub-acute stroke. 12/14: There was no major overnight events. Patient's evaluated by physical therapist and continues to show left side weakness, SNF placement recommended. Pending echocardiogram reports. Pending MRI of the brain. Constitutional Vitals: Vital Signs Temp Pulse Resp BP Pulse Ox 36.1 C 80 14 121/82 97 12/14/21 08:00 12/14/21 08:00 12/14/21 08:00 12/14/21 08:00 12/14/21 08:00 Period Temp Pulse Resp BP Sys/Araujo Pulse Ox Last 24 Hr 36.0 C-36.7 C 80-110 12-28 114-142/78-106 95-100 Intake and Output 12/13/21 12/14/21 12/14/21 21:59 05:59 13:59 Intake Total 120 120 Output Total 150 0 Balance -30 120 Weight 61.462 kg Intake & Output: Intake & Output 12/13/21 12/14/21 12/14/21 21:59 05:59 13:59 Intake Total 120 120 Output Total 150 0 Balance -30 120 Weight 61.462 kg Intake: Oral 120 120 Output: Urine Catheter Amount 150 Void Amount 0 # of times incontinent of urine 0 0 Other: Meal Dinner Percent of Meal Consumed 100% Feeding Ability Independent Urine Appearance Clear Urine Color Dark Yellow Stool Size Moderate Stool Color Brown Stool Consistency Soft Loose # Voids 0 0 # Bowel Movements 0 0 # of times incontinent of 0 0 Bowels Head Head exam: Present atraumatic and normal inspection Eye Eye exam: Present normal appearance ENT ENT exam: Present mucous membranes moist, normal exam and normal external ear exam Neck Neck exam: Present normal inspection Respiratory Respiratory exam: Present normal respiratory exam Cardiovascular Cardiovascular exam: Present normal rate and rhythm GI/Abdominal GI/Abdominal exam: Present normal bowel sounds Back Exam Back exam: Present normal inspection Neurological Exam Neurological exam: Present alert, motor sensory deficit and oriented X3 Additional comments: left lower extremity motor strength 1/5; left upper extremity motor strength 3/5. Skin Skin exam: Present intact and warm OBJ DATA Labs CBC & Chem 7: 12/14/21 05:29 12/14/21 05:28 Labs: Abnormal Lab Results 12/14/21 12/14/21 12/13/21 05:29 05:28 21:49 Plt Count 445 H [place] % (Auto) [place] # (Auto) POC PT POC INR Sodium Carbon Dioxide 21 L Globulin Albumin/Globulin Ratio HDL Cholesterol 35 L Urine Ketones 40 mg/dl A Urine Occult Blood Trace-intact A Urine Mucus Few A 12/13/21 12/13/21 12/13/21 15:51 15:32 15:32 Plt Count 474 H [place] % (Auto) 13.3 H [place] # (Auto) 1.00 H POC PT 15.9 H POC INR 1.3 H Sodium 132 L Carbon Dioxide 21 L Globulin 3.9 H Albumin/Globulin Ratio 0.9 L HDL Cholesterol Urine Ketones Urine Occult Blood Urine Mucus Meds: Medications Acetaminophen (Acetaminophen 325 Mg Tablet) 650 mg PO Q6HP PRN PRN Reason: PAIN/FEVER > 101 Albuterol/Ipratropium (Ipratropium/Albuterol 3 Ml Ampul.Neb) 3 ml NEB Q4HRT PRN PRN Reason: Wheezing Aspirin (Aspirin 81 Mg Tab.Chew) 81 mg PO DAILY [facility] Last Admin: 12/14/21 09:19 Dose: 81 mg Documented by: Atorvastatin Calcium (Atorvastatin 40 Mg Tablet) 40 mg PO DAILY [facility] Last Admin: 12/14/21 09:19 Dose: 40 mg Documented by: Clopidogrel Bisulfate (Clopidogrel 75 Mg Tablet) 75 mg PO DAILY [facility] Last Admin: 12/14/21 09:19 Dose: 75 mg Documented by: Docusate Sodium (Docusate Sodium 100 Mg Capsule) 100 mg PO BID [facility] Last Admin: 12/14/21 09:19 Dose: Not Given Documented by: Enoxaparin Sodium (Enoxaparin 40 Mg/0.4 Ml Syringe) 40 mg SQ DAILY [facility] Last Admin: 12/14/21 09:18 Dose: 40 mg Documented by: Hydralazine HCl (Hydralazine 20 Mg/Ml Vial) 10 mg IV Q4-6HP PRN PRN Reason: Hypertension Ondansetron HCl (Ondansetron 4 Mg/2 Ml Vial) 4 mg IV Q6HP PRN PRN Reason: Nausea And Vomiting Oxycodone HCl (Oxycodone Hcl 5 Mg Tablet) 5 mg PO Q4HP PRN; Protocol PRN Reason: Per Pain Protocol Last Admin: 12/14/21 03:27 Dose: 5 mg Documented by: Senna (Sennosides 1 Tablet) 2 tab PO HS [facility] Last Admin: 12/13/21 19:26 Dose: Not Given Documented by: Sodium Chloride (0.9 % Sodium Chloride 10 Ml Syringe) 10 ml IV Q8 [facility] Last Admin: 12/14/21 05:56 Dose: Not Given Documented by: Trazodone HCl (Trazodone Hcl 50 Mg Tablet) 25 mg PO HSP PRN PRN Reason: Insomnia A/P Assessment and plan (1) Acute cerebrovascular accident (CVA): Status: Acute Narrative A/P Narrative: Assessment and Plans: 1. Subacute ischemic stroke with left sided paralysis: Inpatient med surg telemetry Neuro Chek q4hr NIHSS qSHIFT Bedside swallowing evaluation, passed Physical therapy-->recs. 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 therapy manager ed consult not tPA therapy candidacy due to timing outside of the therapeutic window Also not candidacy for permissive hypertension due to symptoms onset more than 48 hours ago 2D echocardiogram, results pending MRI brain stroke protocol pending Lipid panel HgA1c 5.3 Dual antiplatelet therapy with aspirin and Plavix GI ppx: not currently indicated DVT ppx: Lovenox Code status: DNI DNR Prognosis: stable Disposition: Inpatient med surg telemetry ; SNF placement pending Time Spent With Patient Time: Total time spent is greater than 50% in coordination of care (as documented) at patient's floor/unit and/or counseling patient: Total time spent with greater than 50% in coordination of care (as documented) at patient's floor/unit and/or counseling patient:: 35 - 50 minutes QUALITY Stroke Symptom Onset Unknown: Yes VTE Deep Vein Thrombosis/Pulmonary Embolism Present on Admission: No
--- NOTE | 2021-12-14 12:12 | Magnetic Resonance Report ---
CLINICAL INFORMATION: Left-sided weakness and slurred speech COMPARISON: Head CT 12/13/2021 TECHNIQUE:Sagittal T1 FLAIR, axial T1 FLAIR, T2 FLAIR propeller, T2 propeller, gradient, diffusion, ADC and coronal T2 weighted images were acquired. FINDINGS: The ventricles, sulci, fissures and cisterns are symmetrically enlarged compatible with moderate atrophy. No extra-axial fluid collections or mass appreciated. Chronic ischemic changes in the deep cerebral white matter expected for age. A 14 mm region of restricted diffusion is noted in the posterior right frontal white matter adjacent to the right lateral ventricle and a 6 mm region of restricted diffusion seen in the deep left frontal white matter adjacent to the left lateral ventricle. Findings compatible with acute nonhemorrhagic lacunar infarcts. 10 mm remote lacunar infarct in the posterior left lentiform nucleus 6 mm remote lacunar infarct in the anterior limb right anterior internal capsule and four remote lacunar infarcts in the right lentiform nucleus deep right frontal white matter appreciated. There is also a 3 mm remote lacunar infarct in the left midbrain and a 5 mm remote lacunar infarct in the right nancy.. IMPRESSION: Two acute nonhemorrhagic lacunar infarcts: 14 mm and the posterior right frontal periventricular ventricular white matter and 6 mm in the posterior left frontal deep periventricular white matter. Scattered remote lacunar infarcts in the basal ganglia and deep frontal white matter. Remote lacunar infarcts in the left midbrain and right nancy. Mild atrophy and chronic ischemic changes in the cerebral white matter expected for age Interpreted and Authenticated by: Chau Dean 12/14/21
[2021-12-14] MEDS: SENNOSIDES 1 TABLET PO SCH (20:54)
[2021-12-15] MEDS: oxyCODONE HCL 5 MG TABLET PO PRN ×4 (04:36→23:38)
[2021-12-15] MEDS: 0.9 % SODIUM CHLORIDE 10 ML SYRINGE IV SCH ×3 (04:37→23:39)
[2021-12-15 07:06] LABS: Basophils # (Auto) 0.04 K/mcL (0.00-0.30); Basophils % (Auto) 0.7 % (0.0-2.0); Eosinophils # (Auto) 0.13 K/mcL (0.00-0.70); Eosinophils % (Auto) 2.2 % (0.0-7.0); Hematocrit 39.3 % (40.1-51.0); Hemoglobin 13.1 g/dL (13.7-17.5); Lymphocytes # (Auto) 2.65 K/mcL (1.50-4.80); Lymphocytes % (Auto) 44.2 % (15.5-49.0); Mean Cell Volume 88.7 fL (80.0-100.0); Mean Corpuscular HGB Conc 33.3 g/dL (31.0-36.0); Mean Platelet Volume 8.8 fL (7.4-10.4); Monocytes # (Auto) 0.61 K/mcL (0.10-0.90); Monocytes % (Auto) 10.2 % (1.0-12.0); Neutrophils % (Auto) 42.7 % (38.0-78.0); Platelet Count 414 K/mcL (140-440); RBC 4.43 M/mcL (4.63-6.08); Red Cell Distribution Width 12.3 % (11.5-14.5)
[2021-12-15 07:32] LABS: Blood Urea Nitrogen 15 mg/dL (8-23); Calcium 8.5 mg/dL (8.6-10.4); Carbon Dioxide 24 mmol/L (22-30); Chloride 100 mmol/L (96-108); Glomerular Filtration Rate 107; Glucose 94 mg/dL (70-105)
[2021-12-15] MEDS: CLOPIDOGREL 75 MG TABLET PO SCH (08:32)
[2021-12-15] MEDS: DOCUSATE SODIUM 100 MG CAPSULE PO SCH ×2 (08:32→19:59)
[2021-12-15] MEDS: ASPIRIN 81 MG TAB.CHEW PO SCH (08:32)
[2021-12-15] MEDS: ENOXAPARIN 40 MG/0.4 ML SYRINGE SQ SCH (08:34)
[2021-12-15] MEDS: ATORVASTATIN 40 MG TABLET PO SCH (08:34)
--- NOTE | 2021-12-15 09:19 | Internal Med Progress Note ---
SUBJECTIVE Subjective Patient information: Note initiated : 12/15/21 at 9:15 am Service Date, if different from initiated Date: [] Patient: Declan Davis 61 y/o M admitted on 12/13/21 for stroke symptoms. Chief Complaint: [] Interval history: History of present illness: Mr. Davis is a 61 year old M negative past medical history, p/w 4 days history of left sided weakness and numbness. There was no prior similar episode. He is c/o acute on set left sided weakness and numbness for the past 4 days, including both upper and lower extremities. He denies any nausea or vomiting or slurred speech or trouble swallowing. He also denies any headache. He denies any chest pain or palpitation. He denies any shortness of breath. Vital signs at ED presentation significant for transient tachypnea with rate of breathing in the upper 20s bpm. Labs largely unremarkable. CT head w/o contrast no acute intracranial pathologies. CTA head and neck no hemodynamically significant stenosis. NIHSS of 8 at ED presentation. Admission request made for management of sub-acute stroke. 12/14: There was no major overnight events. Patient's evaluated by physical therapist and continues to show left side weakness, SNF placement recommended. Pending echocardiogram reports. Pending MRI of the brain. 12/15: There was no major overnight events. MRI of the brain showing 2 acute nonhemorrhagic lacunar infarcts: 14 mm in the posterior right frontal perivent ricular left ventricular white matter and 6 mm in the posterior left frontal deep periventricular white matter. Echocardiogram pending. Continue dual antiplatelet therapy with aspirin and Plavix. Continue physical therapy and Occupational Therapy. Pending SNF placement. Constitutional Vitals: Vital Signs Temp Pulse Resp BP Pulse Ox 36.3 C 86 18 118/87 94 12/15/21 07:29 12/15/21 07:29 12/15/21 07:31 12/15/21 07:29 12/15/21 07:29 Period Temp Pulse Resp BP Sys/Araujo Pulse Ox Last 24 Hr 36.3 C-37.2 C 86-105 14-20 107-118/60-87 94-96 Intake and Output 12/14/21 12/15/21 12/15/21 21:59 05:59 13:59 Intake Total 1640 620 Output Total 1 250 Balance 1639 370 Weight 58.922 kg Intake & Output: Intake & Output 12/14/21 12/15/21 12/15/21 21:59 05:59 13:59 Intake Total 1640 620 Output Total 1 250 Balance 1639 370 Weight 58.922 kg Intake: Oral 1640 620 Output: Void Amount 250 # of times incontinent of urine 1 Other: Meal Dinner Percent of Meal Consumed 100% Feeding Ability Independent Urine Color Light Viviana Urine Odor Normal Stool Size Small # Bowel Movements 1 General appearance: disheveled and thin Head Head exam: Present atraumatic and normal inspection Eye Eye exam: Present normal appearance ENT ENT exam: Present mucous membranes moist, normal exam and normal external ear exam Neck Neck exam: Present normal inspection Respiratory Respiratory exam: Present normal respiratory exam Cardiovascular Cardiovascular exam: Present normal rate and rhythm GI/Abdominal GI/Abdominal exam: Present normal bowel sounds Extremities Exam Extremities exam: Absent full ROM Back Exam Back exam: Present normal inspection Neurological Exam Neurological exam: Present alert, CN II-XII intact and oriented X3 Additional comments: left lower extremity motor strength 1/5; left upper extremity motor strength 3/5. Skin Skin exam: Present intact and warm OBJ DATA Labs CBC & Chem 7: 12/15/21 05:17 12/15/21 05:17 Labs: Abnormal Lab Results 12/15/21 12/15/21 12/14/21 05:17 05:17 05:29 RBC 4.43 L Hgb 13.1 L Hct 39.3 L Plt Count 445 H [place] % (Auto) [place] # (Auto) POC PT POC INR Sodium Carbon Dioxide Creatinine 0.6 L Calcium 8.5 L Globulin Albumin/Globulin Ratio HDL Cholesterol Urine Ketones Urine Occult Blood Urine Mucus 12/14/21 12/13/21 12/13/21 05:28 21:49 15:51 RBC Hgb Hct Plt Count [place] % (Auto) [place] # (Auto) POC PT 15.9 H POC INR 1.3 H Sodium Carbon Dioxide 21 L Creatinine Calcium Globulin Albumin/Globulin Ratio HDL Cholesterol 35 L Urine Ketones 40 mg/dl A Urine Occult Blood Trace-intact A Urine Mucus Few A 12/13/21 12/13/21 15:32 15:32 RBC Hgb Hct Plt Count 474 H [place] % (Auto) 13.3 H [place] # (Auto) 1.00 H POC PT POC INR Sodium 132 L Carbon Dioxide 21 L Creatinine Calcium Globulin 3.9 H Albumin/Globulin Ratio 0.9 L HDL Cholesterol Urine Ketones Urine Occult Blood Urine Mucus Meds: Medications Acetaminophen (Acetaminophen 325 Mg Tablet) 650 mg PO Q6HP PRN PRN Reason: PAIN/FEVER > 101 Albuterol/Ipratropium (Ipratropium/Albuterol 3 Ml Ampul.Neb) 3 ml NEB Q4HRT PRN PRN Reason: Wheezing Aspirin (Aspirin 81 Mg Tab.Chew) 81 mg PO DAILY [facility] Last Admin: 12/15/21 08:32 Dose: 81 mg Documented by: Atorvastatin Calcium (Atorvastatin 40 Mg Tablet) 40 mg PO DAILY [facility] Last Admin: 12/15/21 08:34 Dose: 40 mg Documented by: Clopidogrel Bisulfate (Clopidogrel 75 Mg Tablet) 75 mg PO DAILY [facility] Last Admin: 12/15/21 08:32 Dose: 75 mg Documented by: Docusate Sodium (Docusate Sodium 100 Mg Capsule) 100 mg PO BID [facility] Last Admin: 12/15/21 08:32 Dose: 100 mg Documented by: Enoxaparin Sodium (Enoxaparin 40 Mg/0.4 Ml Syringe) 40 mg SQ DAILY [facility] Last Admin: 12/15/21 08:34 Dose: 40 mg Documented by: Hydralazine HCl (Hydralazine 20 Mg/Ml Vial) 10 mg IV Q4-6HP PRN PRN Reason: Hypertension Ondansetron HCl (Ondansetron 4 Mg/2 Ml Vial) 4 mg IV Q6HP PRN PRN Reason: Nausea And Vomiting Oxycodone HCl (Oxycodone Hcl 5 Mg Tablet) 5 mg PO Q4HP PRN; Protocol PRN Reason: Per Pain Protocol Last Admin: 12/15/21 08:33 Dose: 5 mg Documented by: Senna (Sennosides 1 Tablet) 2 tab PO HS [facility] Last Admin: 12/14/21 20:54 Dose: Not Given Documented by: Sodium Chloride (0.9 % Sodium Chloride 10 Ml Syringe) 10 ml IV Q8 [facility] Last Admin: 12/15/21 04:37 Dose: 10 ml Documented by: Trazodone HCl (Trazodone Hcl 50 Mg Tablet) 25 mg PO HSP PRN PRN Reason: Insomnia A/P Assessment and plan (1) Acute cerebrovascular accident (CVA): Status: Acute (2) Anemia, normocytic normochromic: Status: Acute Narrative A/P Narrative: Assessment and Plans: 1. Subacute ischemic stroke with left sided paralysis: Inpatient med surg telemetry Neuro Chek q4hr NIHSS qSHIFT Bedside swallowing evaluation, passed, regular diet Physical therapy-->recs. 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 therapy health program manager consult not tPA therapy candidacy due to timing outside of the therapeutic window Also not candidacy for permissive hypertension due to symptoms onset more than 48 hours ago 2D echocardiogram, results pending MRI of the brain showing 2 acute nonhemorrhagic lacunar infarcts: 14 mm in the posterior right frontal periventricular left ventricular white matter and 6 mm in the posterior left frontal deep periventricular white matter Lipid panel HgA1c 5.3 Dual antiplatelet therapy with aspirin and Plavix 2. Anemia, normocytic normochromic: cbc w/ auto diff in the morning to trend H/H GI ppx: not currently indicated DVT ppx: Lovenox Code status: DNI DNR Prognosis: stable Disposition: Inpatient med surg telemetry ; SNF placement pending Time Spent With Patient Time: Total time spent is greater than 50% in coordination of care (as documented) at patient's floor/unit and/or counseling patient: Total time spent with greater than 50% in coordination of care (as documented) at patient's floor/unit and/or counseling patient:: 35 - 50 minutes QUALITY Stroke Symptom Onset Unknown: Yes VTE Deep Vein Thrombosis/Pulmonary Embolism Present on Admission: No
--- NOTE | 2021-12-15 12:35 | Discharge Summary ---
Discharge Provider Provider IMPORTANT FOLLOW-UP INFORMATION FOR PCP: Patient information: Note initiated : 12/15/21 at 12:33 pm Service Date, if different from initiated Date: [] Patient: Declan Davis 61 y/o M admitted on 12/13/21 for stroke symptoms. Chief Complaint: [] Date of admission: 12/13/21 17:35 Discharge date: 12/18/21 Primary care physician: PCP No Consults: 12/13/21 16:43 Consult to Physician [CONS] Stat Comment: Consulting Provider: Fermín Ortez Reason For Exam: Physician to Consult 12/14/21 13:48 Consult to Physician [CONS] Routine Comment: Consulting Provider: Tim Bae Reason For Exam: Physician to Consult COURSE Hospital Course Hospital course: Interval history: History of present illness: Mr. Davis is a 61 year old M negative past medical history, p/w 4 days history of left sided weakness and numbness. There was no prior similar episode. He is c/o acute on set left sided weakness and numbness for the past 4 days, including both upper and lower extremities. He denies any nausea or vomiting or slurred speech or trouble swallowing. He also denies any headache. He denies any chest pain or palpitation. He denies any shortness of breath. Vital signs at ED presentation significant for transient tachypnea with rate of breathing in the upper 20s bpm. Labs largely unremarkable. CT head w/o contrast no acute intracranial pathologies. CTA head and neck no hemodynamically significant stenosis. NIHSS of 8 at ED presentation. Admission request made for management of sub-acute stroke. 12/14: There was no major overnight events. Patient's evaluated by physical therapist and continues to show left side weakness, SNF placement recommended. Pending echocardiogram reports. Pending MRI of the brain. 12/15: There was no major overnight events. MRI of the brain showing 2 acute nonhemorrhagic lacunar infarcts: 14 mm in the posterior right frontal periventricular left ventricular white matter and 6 mm in the posterior left frontal deep periventricular white matter. Echocardiogram pending. Continue dual antiplatelet therapy with aspirin and Plavix. Continue physical therapy and Occupational Therapy. Pending SNF placement. 12/16 Poor sleep. Left-sided weakness. Physical therapy to continue working with them. Patient does not feel much improvement in his left-sided weakness. 12/17 Patient seems stable little better. Patient feels he can move his left foot a little bit easier. No other overnight event or new complaints. 12/18 No overnight event or new complaints. Stable for discharge to rehab. Assessment and Plans: 1. Subacute ischemic stroke with left sided paralysis: Bedside swallowing evaluation, passed, regular diet Physical therapy-->recs. SNF placement not tPA therapy candidacy due to timing outside of the therapeutic window MRI of the brain showing 2 acute nonhemorrhagic lacunar infarcts: 14 mm in the posterior right frontal periventricular left ventricular white matter and 6 mm in the posterior left frontal deep periventricular white matter Dual antiplatelet therapy with aspirin and Plavix 2.Anemia, normocytic normochromic: Discharge diagnosis: Subacute stroke and anemia Time Spent with Patient Time attestation: Total time spent providing and/or coordinating discharge services: Time spent: Greater than 30 minutes EXAM Constitutional Vitals: Temp Pulse Resp BP Pulse Ox 99.2 F H 80 18 104/63 94 12/15/21 12:00 12/15/21 12:00 12/15/21 12:00 12/15/21 12:00 12/15/21 12:00 Discharge Data Data Completed and Pending Labs on day of discharge: Labs from last 24 hours 12/15/21 12/15/21 05:17 05:17 WBC 6.0 RBC 4.43 L Hgb 13.1 L Hct 39.3 L MCV 88.7 MCH 29.6 MCHC 33.3 RDW 12.3 Plt Count 414 MPV 8.8 Neut % (Auto) 42.7 Lymph % (Auto) 44.2 [place] % (Auto) 10.2 Eos % (Auto) 2.2 Baso % (Auto) 0.7 Lymph # (Auto) 2.65 [place] # (Auto) 0.61 Eos # (Auto) 0.13 Baso # (Auto) 0.04 Absolute Neutrophils 2.57 Sodium 133 Potassium 3.8 Chloride 100 Carbon Dioxide 24 Anion Gap 9.0 BUN 15 Creatinine 0.6 L GFR Calculation 107 Glucose 94 Calcium 8.5 L Preliminary micro results at discharge 12/13/21 15:56 Blood Culture - Preliminary Blood Coagulase negative staph 12/13/21 15:49 Blood Culture - Preliminary Blood Discharge Plan Patient/Caregiver Discharge Instructions Activity: increase activity as tolerated Diet: Regular Diet Activity Restrictions/Additional Instructions: Follow-up with PCP in 3 to 7 days. Prescriptions: New atorvastatin 40 mg Tablet 40 mg PO DAILY Qty: 60 0RF clopidogrel 75 mg Tablet 75 mg PO DAILY Qty: 30 0RF aspirin 81 mg tablet,delayed release (DR/EC) 81 mg PO QDAY Qty: 30 0RF Follow Up Plan Follow up with: No,PCP [Primary Care Provider] - Patient Disposition: Xfer SNF Prognosis: Fair Rehab Potential: Fair I certify that the patient requires SNF services: Yes Overall status at discharge: patient is progressing back to baseline Discharge Orders: Discharge Order (Routine); Ordered 12/18/21 [facility]/Pulmonary Embolism Present on Admission: No
[2021-12-15] MEDS: SENNOSIDES 1 TABLET PO SCH (19:59)
[2021-12-16] MEDS: 0.9 % SODIUM CHLORIDE 10 ML SYRINGE IV SCH ×3 (05:54→20:07)
[2021-12-16] MEDS: oxyCODONE HCL 5 MG TABLET PO PRN (05:54)
--- NOTE | 2021-12-16 07:28 | Internal Med Progress Note ---
SUBJECTIVE Subjective Patient information: Note initiated : 12/16/21 at 7:26 am Service Date, if different from initiated Date: [] Patient: Declan Davis 61 y/o M admitted on 12/13/21 for stroke symptoms. Chief Complaint: [] Interval history: History of present illness: Mr. Davis is a 61 year old M negative past medical history, p/w 4 days history of left sided weakness and numbness. There was no prior similar episode. He is c/o acute on set left sided weakness and numbness for the past 4 days, including both upper and lower extremities. He denies any nausea or vomiting or slurred speech or trouble swallowing. He also denies any headache. He denies any chest pain or palpitation. He denies any shortness of breath. Vital signs at ED presentation significant for transient tachypnea with rate of breathing in the upper 20s bpm. Labs largely unremarkable. CT head w/o contrast no acute intracranial pathologies. CTA head and neck no hemodynamically significant stenosis. NIHSS of 8 at ED presentation. Admission request made for management of sub-acute stroke. 12/14: There was no major overnight events. Patient's evaluated by physical therapist and continues to show left side weakness, SNF placement recommended. Pending echocardiogram reports. Pending MRI of the brain. 12/15: There was no major overnight events. MRI of the brain showing 2 acute nonhemorrhagic lacunar infarcts: 14 mm in the posterior right frontal perivent ricular left ventricular white matter and 6 mm in the posterior left frontal deep periventricular white matter. Echocardiogram pending. Continue dual antiplatelet therapy with aspirin and Plavix. Continue physical therapy and Occupational Therapy. Pending SNF placement. 12/16 Poor sleep. Left-sided weakness. Physical therapy to continue working with them. Patient does not feel much improvement in his left-sided weakness. Review of Systems: denies headache/fever/chills/nausea/vomiting/chest or abdominal pain/cough/dyspnea/diarrhea. Otherwise see above. Constitutional Vitals: Vital Signs Temp Pulse Resp BP Pulse Ox 97.8 F 76 16 116/72 93 12/16/21 03:34 12/16/21 03:34 12/16/21 03:34 12/16/21 03:34 12/16/21 03:34 Period Temp Pulse Resp BP Sys/Araujo Pulse Ox Last 24 Hr 97.4 F-99.2 F 76-92 16-20 101-118/59-87 93-96 Intake and Output 12/15/21 12/16/21 12/16/21 21:59 05:59 13:59 Intake Total 480 320 Output Total 250 350 Balance 230 -30 Weight 67.268 kg Intake & Output: Intake & Output 12/15/21 12/16/21 12/16/21 21:59 05:59 13:59 Intake Total 480 320 Output Total 250 350 Balance 230 -30 Weight 67.268 kg Intake: Oral 480 320 Output: Void Amount 250 350 Other: Meal Dinner Percent of Meal Consumed 75% Urine Appearance Clear Urine Color Dark Viviana Exam: General: Alert, Awake, No acute Distress Eyes/N/T: EOMI, Head/Neck: neck supple, CV: RRR, No murmurs, Pulm: Clear b/l, no wheezing/rhonchi/rales Abd: soft, nontender, +BS x4 Ext: no clubbing/cyanosis/edema Neuro: Alert, left hemiplegia Leg>Arm, moves other extremities well Skin: warm/dry OBJ DATA Labs CBC & Chem 7: 12/15/21 05:17 12/15/21 05:17 Labs: Abnormal Lab Results 12/15/21 12/15/21 12/14/21 05:17 05:17 05:29 RBC 4.43 L Hgb 13.1 L Hct 39.3 L Plt Count 445 H Mobile % (Auto) Mobile # (Auto) POC PT POC INR Sodium Carbon Dioxide Creatinine 0.6 L Calcium 8.5 L Globulin Albumin/Globulin Ratio HDL Cholesterol Urine Ketones Urine Occult Blood Urine Mucus 12/14/21 12/13/21 12/13/21 05:28 21:49 15:51 RBC Hgb Hct Plt Count Mobile % (Auto) Mobile # (Auto) POC PT 15.9 H POC INR 1.3 H Sodium Carbon Dioxide 21 L Creatinine Calcium Globulin Albumin/Globulin Ratio HDL Cholesterol 35 L Urine Ketones 40 mg/dl A Urine Occult Blood Trace-intact A Urine Mucus Few A 12/13/21 12/13/21 15:32 15:32 RBC Hgb Hct Plt Count 474 H Mobile % (Auto) 13.3 H Mobile # (Auto) 1.00 H POC PT POC INR Sodium 132 L Carbon Dioxide 21 L Creatinine Calcium Globulin 3.9 H Albumin/Globulin Ratio 0.9 L HDL Cholesterol Urine Ketones Urine Occult Blood Urine Mucus Meds: Medications Acetaminophen (Acetaminophen 325 Mg Tablet) 650 mg PO Q6HP PRN PRN Reason: PAIN/FEVER > 101 Albuterol/Ipratropium (Ipratropium/Albuterol 3 Ml Ampul.Neb) 3 ml NEB Q4HRT PRN PRN Reason: Wheezing Aspirin (Aspirin 81 Mg Tab.Chew) 81 mg PO DAILY [facility] Last Admin: 12/15/21 08:32 Dose: 81 mg Documented by: Atorvastatin Calcium (Atorvastatin 40 Mg Tablet) 40 mg PO DAILY [facility] Last Admin: 12/15/21 08:34 Dose: 40 mg Documented by: Clopidogrel Bisulfate (Clopidogrel 75 Mg Tablet) 75 mg PO DAILY [facility] Last Admin: 12/15/21 08:32 Dose: 75 mg Documented by: Docusate Sodium (Docusate Sodium 100 Mg Capsule) 100 mg PO BID [facility] Last Admin: 12/15/21 19:59 Dose: Not Given Documented by: Enoxaparin Sodium (Enoxaparin 40 Mg/0.4 Ml Syringe) 40 mg SQ DAILY [facility] Last Admin: 12/15/21 08:34 Dose: 40 mg Documented by: Hydralazine HCl (Hydralazine 20 Mg/Ml Vial) 10 mg IV Q4-6HP PRN PRN Reason: Hypertension Ondansetron HCl (Ondansetron 4 Mg/2 Ml Vial) 4 mg IV Q6HP PRN PRN Reason: Nausea And Vomiting Oxycodone HCl (Oxycodone Hcl 5 Mg Tablet) 5 mg PO Q4HP PRN; Protocol PRN Reason: Per Pain Protocol Last Admin: 12/16/21 05:54 Dose: 5 mg Documented by: Senna (Sennosides 1 Tablet) 2 tab PO HS [facility] Last Admin: 12/15/21 19:59 Dose: Not Given Documented by: Sodium Chloride (0.9 % Sodium Chloride 10 Ml Syringe) 10 ml IV Q8 [facility] Last Admin: 12/16/21 05:54 Dose: 10 ml Documented by: Trazodone HCl (Trazodone Hcl 50 Mg Tablet) 25 mg PO HSP PRN PRN Reason: Insomnia A/P Narrative A/P Narrative: Assessment and Plans: *Subacute ischemic stroke with left hemiplegia Leg>Arm: Inpatient med surg telemetry Neuro Chek / NIHSS qSHIFT Bedside swallowing evaluation, passed, regular diet Physical therapy-->recs. 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 not tPA therapy candidacy due to timing outside of the therapeutic window Also not candidacy for permissive hypertension due to symptoms onset more than 48 hours ago 2D echocardiogram, results pending MRI of the brain showing 2 acute nonhemorrhagic lacunar infarcts: 14 mm in the posterior right frontal periventricular left ventricular white matter and 6 mm in the posterior left frontal deep periventricular white matter HgA1c 5.3 Dual antiplatelet therapy with aspirin and Plavix *Anemia, normocytic normochromic: *DVT ppx: Lovenox Code status: DNI DNR Time Spent With Patient Time: Total time spent is greater than 50% in coordination of care (as documented) at patient's floor/unit and/or counseling patient: QUALITY Stroke Symptom Onset Unknown: Yes VTE Deep Vein Thrombosis/Pulmonary Embolism Present on Admission: No
[2021-12-16] MEDS: ATORVASTATIN 40 MG TABLET PO SCH (08:12)
[2021-12-16] MEDS: ASPIRIN 81 MG TAB.CHEW PO SCH (08:12)
[2021-12-16] MEDS: ENOXAPARIN 40 MG/0.4 ML SYRINGE SQ SCH (08:12)
[2021-12-16] MEDS: DOCUSATE SODIUM 100 MG CAPSULE PO SCH ×2 (08:12→20:07)
[2021-12-16] MEDS: CLOPIDOGREL 75 MG TABLET PO SCH (08:12)
[2021-12-16] MEDS ORDERED: diphenhydrAMINE 25 MG CAPSULE PO PRN (08:53)
[2021-12-16] MEDS: MELATONIN 3 MG TABLET PO SCH (20:07)
[2021-12-16] MEDS: traZODone HCL 50 MG TABLET PO PRN (20:07)
[2021-12-16] MEDS: SENNOSIDES 1 TABLET PO SCH (20:07)
[2021-12-17] MEDS: 0.9 % SODIUM CHLORIDE 10 ML SYRINGE IV SCH ×3 (05:14→20:15)
--- NOTE | 2021-12-17 06:35 | Internal Med Progress Note ---
SUBJECTIVE Subjective Patient information: Note initiated : 12/17/21 at 6:34 am Service Date, if different from initiated Date: [] Patient: Declan Davis 61 y/o M admitted on 12/13/21 for stroke symptoms. Chief Complaint: [] Interval history: History of present illness: Mr. Davis is a 61 year old M negative past medical history, p/w 4 days history of left sided weakness and numbness. There was no prior similar episode. He is c/o acute on set left sided weakness and numbness for the past 4 days, including both upper and lower extremities. He denies any nausea or vomiting or slurred speech or trouble swallowing. He also denies any headache. He denies any chest pain or palpitation. He denies any shortness of breath. Vital signs at ED presentation significant for transient tachypnea with rate of breathing in the upper 20s bpm. Labs largely unremarkable. CT head w/o contrast no acute intracranial pathologies. CTA head and neck no hemodynamically significant stenosis. NIHSS of 8 at ED presentation. Admission request made for management of sub-acute stroke. 12/14: There was no major overnight events. Patient's evaluated by physical therapist and continues to show left side weakness, SNF placement recommended. Pending echocardiogram reports. Pending MRI of the brain. 12/15: There was no major overnight events. MRI of the brain showing 2 acute nonhemorrhagic lacunar infarcts: 14 mm in the posterior right frontal perivent ricular left ventricular white matter and 6 mm in the posterior left frontal deep periventricular white matter. Echocardiogram pending. Continue dual antiplatelet therapy with aspirin and Plavix. Continue physical therapy and Occupational Therapy. Pending SNF placement. 12/16 Poor sleep. Left-sided weakness. Physical therapy to continue working with them. Patient does not feel much improvement in his left-sided weakness. 12/17 Patient seems stable little better. Patient feels he can move his left foot a little bit easier. No other overnight event or new complaints. Review of Systems: denies headache/fever/chills/nausea/vomiting/chest or abdominal pain/cough/dyspnea/diarrhea. Otherwise see above. Constitutional Vitals: Vital Signs Temp Pulse Resp BP Pulse Ox 97.8 F 81 16 105/71 95 12/17/21 04:00 12/17/21 04:00 12/17/21 04:00 12/17/21 04:00 12/17/21 04:00 Period Temp Pulse Resp BP Sys/Araujo Pulse Ox Last 24 Hr 97.4 F-97.9 F 74-92 16-18 99-130/68-87 95-96 Intake and Output 12/16/21 12/17/21 12/17/21 21:59 05:59 13:59 Intake Total 100 Output Total 575 750 Balance -575 -650 Weight 67.268 kg Intake & Output: Intake & Output 12/16/21 12/17/21 12/17/21 21:59 05:59 13:59 Intake Total 100 Output Total 575 750 Balance -575 -650 Weight 67.268 kg Intake: Oral 100 Output: Void Amount 575 750 Other: Urine Appearance Clear Urine Color Dark Yellow Urine Odor Normal Exam: General: Alert, Awake, No acute Distress Eyes/N/T: EOMI, Head/Neck: neck supple, CV: RRR, No murmurs, Pulm: Clear b/l, no wheezing/rhonchi/rales Abd: soft, nontender, +BS x4 Ext: no clubbing/cyanosis/edema Neuro: Alert, left hemiplegia Leg>Arm, moves other extremities well Skin: warm/dry OBJ DATA Labs CBC & Chem 7: 12/15/21 05:17 12/15/21 05:17 Labs: Abnormal Lab Results 12/15/21 12/15/21 12/14/21 05:17 05:17 05:28 RBC 4.43 L Hgb 13.1 L Hct 39.3 L Carbon Dioxide 21 L Creatinine 0.6 L Calcium 8.5 L HDL Cholesterol 35 L Meds: Medications Acetaminophen (Acetaminophen 325 Mg Tablet) 650 mg PO Q6HP PRN PRN Reason: PAIN/FEVER > 101 Last Admin: 12/17/21 04:43 Dose: 650 mg Documented by: Albuterol/Ipratropium (Ipratropium/Albuterol 3 Ml Ampul.Neb) 3 ml NEB Q4HRT PRN PRN Reason: Wheezing Aspirin (Aspirin 81 Mg Tab.Chew) 81 mg PO DAILY [facility] Last Admin: 12/16/21 08:12 Dose: 81 mg Documented by: Atorvastatin Calcium (Atorvastatin 40 Mg Tablet) 40 mg PO DAILY [facility] Last Admin: 12/16/21 08:12 Dose: 40 mg Documented by: Clopidogrel Bisulfate (Clopidogrel 75 Mg Tablet) 75 mg PO DAILY [facility] Last Admin: 12/16/21 08:12 Dose: 75 mg Documented by: Diphenhydramine HCl (Diphenhydramine 25 Mg Capsule) 25 mg PO HSP PRN PRN Reason: Insomnia Docusate Sodium (Docusate Sodium 100 Mg Capsule) 100 mg PO BID [facility] Last Admin: 12/16/21 20:07 Dose: 100 mg Documented by: Enoxaparin Sodium (Enoxaparin 40 Mg/0.4 Ml Syringe) 40 mg SQ DAILY [facility] Last Admin: 12/16/21 08:12 Dose: 40 mg Documented by: Hydralazine HCl (Hydralazine 20 Mg/Ml Vial) 10 mg IV Q4-6HP PRN PRN Reason: Hypertension Melatonin (Melatonin 3 Mg Tablet) 3 mg PO QHS [facility] Last Admin: 12/16/21 20:07 Dose: 3 mg Documented by: Ondansetron HCl (Ondansetron 4 Mg/2 Ml Vial) 4 mg IV Q6HP PRN PRN Reason: Nausea And Vomiting Oxycodone HCl (Oxycodone Hcl 5 Mg Tablet) 5 mg PO Q4HP PRN; Protocol PRN Reason: Per Pain Protocol Last Admin: 12/16/21 05:54 Dose: 5 mg Documented by: Senna (Sennosides 1 Tablet) 2 tab PO [facility] Last Admin: 12/16/21 20:07 Dose: 2 tab Documented by: Sodium Chloride (0.9 % Sodium Chloride 10 Ml Syringe) 10 ml IV Q8 [facility] Last Admin: 12/17/21 05:14 Dose: Not Given Documented by: Trazodone HCl (Trazodone Hcl 50 Mg Tablet) 25 mg PO [facility] PRN PRN Reason: Insomnia Last Admin: 12/16/21 20:07 Dose: 25 mg Documented by: A/P Narrative A/P Narrative: Assessment and Plans: *Subacute ischemic stroke with left hemiplegia Leg>Arm: Inpatient med surg telemetry Neuro Chek / NIHSS qSHIFT Bedside swallowing evaluation, passed, regular diet Physical therapy-->recs. 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 not tPA therapy candidacy due to timing outside of the therapeutic window Also not candidacy for permissive hypertension due to symptoms onset more than 48 hours ago 2D echocardiogram, results pending MRI of the brain showing 2 acute nonhemorrhagic lacunar infarcts: 14 mm in the posterior right frontal periventricular left ventricular white matter and 6 mm in the posterior left frontal deep periventricular white matter HgA1c 5.3 Dual antiplatelet therapy with aspirin and Plavix *Anemia, normocytic normochromic: *DVT ppx: Lovenox Code status: DNI DNR Time Spent With Patient Time: Total time spent is greater than 50% in coordination of care (as documented) at patient's floor/unit and/or counseling patient: QUALITY Stroke Symptom Onset Unknown: Yes VTE Deep Vein Thrombosis/Pulmonary Embolism Present on Admission: No
[2021-12-17] MEDS: ASPIRIN 81 MG TAB.CHEW PO SCH (08:08)
[2021-12-17] MEDS: DOCUSATE SODIUM 100 MG CAPSULE PO SCH ×2 (08:08→20:15)
[2021-12-17] MEDS: ATORVASTATIN 40 MG TABLET PO SCH (08:08)
[2021-12-17] MEDS: CLOPIDOGREL 75 MG TABLET PO SCH (08:08)
[2021-12-17] MEDS: oxyCODONE HCL 5 MG TABLET PO PRN ×2 (08:08→19:07)
[2021-12-17] MEDS: ENOXAPARIN 40 MG/0.4 ML SYRINGE SQ SCH (08:08)
--- NOTE | 2021-12-17 09:05 | Internal Med Progress Note ---
SUBJECTIVE Subjective Patient information: Note initiated : 12/17/21 at 9:05 am Service Date, if different from initiated Date: [] Patient: Declan Davis 61 y/o M admitted on 12/13/21 for stroke symptoms. Chief Complaint: [] Constitutional Vitals: Vital Signs Temp Pulse Resp BP Pulse Ox 98.2 F 76 16 97/68 96 12/17/21 07:59 12/17/21 07:59 12/17/21 07:59 12/17/21 07:59 12/17/21 07:59 Period Temp Pulse Resp BP Sys/Araujo Pulse Ox Last 24 Hr 97.5 F-98.2 F 74-92 16-16 97-130/68-87 95-96 Intake and Output 12/16/21 12/17/21 12/17/21 21:59 05:59 13:59 Intake Total 100 Output Total 575 750 Balance -575 -650 Weight 67.268 kg Intake & Output: Intake & Output 12/16/21 12/17/21 12/17/21 21:59 05:59 13:59 Intake Total 100 Output Total 575 750 Balance -575 -650 Weight 67.268 kg Intake: Oral 100 Output: Void Amount 575 750 Other: Urine Appearance Clear Urine Color Dark Yellow Urine Odor Normal OBJ DATA Labs CBC & Chem 7: 12/15/21 05:17 12/15/21 05:17 Labs: Abnormal Lab Results 12/15/21 12/15/21 05:17 05:17 RBC 4.43 L Hgb 13.1 L Hct 39.3 L Creatinine 0.6 L Calcium 8.5 L Meds: Medications Acetaminophen (Acetaminophen 325 Mg Tablet) 650 mg PO Q6HP PRN PRN Reason: PAIN/FEVER > 101 Last Admin: 12/17/21 04:43 Dose: 650 mg Documented by: Albuterol/Ipratropium (Ipratropium/Albuterol 3 Ml Ampul.Neb) 3 ml NEB Q4HRT PRN PRN Reason: Wheezing Aspirin (Aspirin 81 Mg Tab.Chew) 81 mg PO DAILY [facility] Last Admin: 12/17/21 08:08 Dose: 81 mg Documented by: Atorvastatin Calcium (Atorvastatin 40 Mg Tablet) 40 mg PO DAILY [facility] Last Admin: 12/17/21 08:08 Dose: 40 mg Documented by: Clopidogrel Bisulfate (Clopidogrel 75 Mg Tablet) 75 mg PO DAILY [facility] Last Admin: 12/17/21 08:08 Dose: 75 mg Documented by: Diphenhydramine HCl (Diphenhydramine 25 Mg Capsule) 25 mg PO HSP PRN PRN Reason: Insomnia Docusate Sodium (Docusate Sodium 100 Mg Capsule) 100 mg PO BID [facility] Last Admin: 12/17/21 08:08 Dose: 100 mg Documented by: Enoxaparin Sodium (Enoxaparin 40 Mg/0.4 Ml Syringe) 40 mg SQ DAILY [facility] Last Admin: 12/17/21 08:08 Dose: 40 mg Documented by: Hydralazine HCl (Hydralazine 20 Mg/Ml Vial) 10 mg IV Q4-6HP PRN PRN Reason: Hypertension Melatonin (Melatonin 3 Mg Tablet) 3 mg PO QHS [facility] Last Admin: 12/16/21 20:07 Dose: 3 mg Documented by: Ondansetron HCl (Ondansetron 4 Mg/2 Ml Vial) 4 mg IV Q6HP PRN PRN Reason: Nausea And Vomiting Oxycodone HCl (Oxycodone Hcl 5 Mg Tablet) 5 mg PO Q4HP PRN; Protocol PRN Reason: Per Pain Protocol Last Admin: 12/17/21 08:08 Dose: 5 mg Documented by: Senna (Sennosides 1 Tablet) 2 tab PO [facility] Last Admin: 12/16/21 20:07 Dose: 2 tab Documented by: Sodium Chloride (0.9 % Sodium Chloride 10 Ml Syringe) 10 ml IV Q8 [facility] Last Admin: 12/17/21 05:14 Dose: Not Given Documented by: Trazodone HCl (Trazodone Hcl 50 Mg Tablet) 25 mg PO HSP PRN PRN Reason: Insomnia Last Admin: 12/16/21 20:07 Dose: 25 mg Documented by: A/P Time Spent With Patient Time: Total time spent is greater than 50% in coordination of care (as documented) at patient's floor/unit and/or counseling patient: QUALITY Stroke Symptom Onset Unknown: Yes VTE Deep Vein Thrombosis/Pulmonary Embolism Present on Admission: No
[2021-12-17] MEDS: MELATONIN 3 MG TABLET PO SCH (20:15)
[2021-12-17] MEDS: traZODone HCL 50 MG TABLET PO PRN (20:15)
[2021-12-17] MEDS: SENNOSIDES 1 TABLET PO SCH (20:15)
[2021-12-18] MEDS: oxyCODONE HCL 5 MG TABLET PO PRN (04:28)
[2021-12-18] MEDS: 0.9 % SODIUM CHLORIDE 10 ML SYRINGE IV SCH (05:40)
--- NOTE | 2021-12-18 07:37 | EKG ---
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
[2021-12-18] MEDS: CLOPIDOGREL 75 MG TABLET PO SCH (08:02)
[2021-12-18] MEDS: ENOXAPARIN 40 MG/0.4 ML SYRINGE SQ SCH (08:02)
[2021-12-18] MEDS: ASPIRIN 81 MG TAB.CHEW PO SCH (08:02)
[2021-12-18] MEDS: DOCUSATE SODIUM 100 MG CAPSULE PO SCH (08:02)
[2021-12-18] MEDS: ATORVASTATIN 40 MG TABLET PO SCH (08:02)
== END 2021-12-18 11:50 | DRG 65 ==
LOC: ED 15:19 → MEDSUR 15:19 → OBSVTOIN 17:35 → MEDSUR 17:42
PROVIDERS: ADMIT Internal Medicine; ATTEND Internal Medicine